=== PATIENT | male | born 1950 | race African-American/Black ===

== ENCOUNTER 2019-05-28 20:39 | Inpatient (IN) | payer MEDICAID, MEDICARE ==
[~2019-05-28] VITALS: Ht 162.6 cm; Wt 58.1 kg
[2019-05-28 20:45] VITALS: BP_SYST 128
--- NOTE | 2019-05-28 23:20 | NUR ---
Patient to ER bed 4 to gown for evaluation. Side rails up.
--- NOTE | 2019-05-28 23:22 | NUR ---
Dr. Virk bedside for pt eval
[2019-05-28] MEDS ORDERED: NACL 0.9% 1,000 ML IV ONE (23:30)
--- NOTE | 2019-05-28 23:30 | NUR ---
Pt LANDON from [facility] to ED seeking medical clearance VSS no s/s of acute distress Resting on gurney rails up
[2019-05-29] MEDS ORDERED: ACET-2165 PO (00:05)
[2019-05-29] MEDS ORDERED: NOR10 PO (00:07)
[2019-05-29] MEDS ORDERED: ARGI1POW13 PO (00:08)
[2019-05-29] MEDS ORDERED: ATEN100T PO (00:09)
[2019-05-29] MEDS ORDERED: LIP80 PO (00:11)
--- NOTE | 2019-05-29 00:12 | NUR ---
Pt taken to Radiology in stable condition
[2019-05-29] MEDS ORDERED: BUDE0.5A IH (00:13)
[2019-05-29 00:19] LABS: BASOPHILS % (AUTO) 0.6 % (0.0-2.0); EOSINOPHILS # (AUTO) 0.2 K/uL (0.0-0.4); EOSINOPHILS % (AUTO) 2.9 % (0.0-4.0); HEMATOCRIT 32.5 % (36-54); HEMOGLOBIN 10.9 g/dL (14.0-18.0); LYMPHOCYTES # (AUTO) 2.2 K/uL (1.0-5.5); LYMPHOCYTES % (AUTO) 39.4 % (20.5-51.5); MEAN CORPUSCULAR HEMOGLOBIN 32 pg (27-31); MEAN CORPUSCULAR HGB CONC 34 % (32-36); MEAN CORPUSCULAR VOLUME 96 fL (79.0-98.0); MONOCYTES # (AUTO) 0.4 K/uL (0.0-1.0); MONOCYTES % (AUTO) 6.9 % (1.7-9.3); NEUTROPHILS # (AUTO) 2.8 K/uL (1.8-7.7); NEUTROPHILS % (AUTO) 50.2 % (40.0-70.0); PLATELET COUNT (AUTO) 229 K/uL (130-430); RED CELL DISTRIBUTION WIDTH 13.7 % (9.0-15.0); WHITE BLOOD COUNT (AUTO) 5.5 K/uL (4.8-10.8)
[2019-05-29 00:23] LABS: CALCIUM 9.5 mg/dL (8.4-11.0); CREATININE 1.86 mg/dL (0.55-1.30); POTASSIUM 3.6 mmol/L (3.5-5.1)
[2019-05-29] MEDS ORDERED: CLON0.3T PO (00:30)
[2019-05-29 00:31] LABS: ALBUMIN 3.3 g/dL (3.4-4.8); TOTAL BILIRUBIN 0.2 mg/dL (0.0-1.0)
[2019-05-29] MEDS ORDERED: DONE5TAB33 PO (00:31)
[2019-05-29] MEDS ORDERED: MULT-1100 PO (00:32)
[2019-05-29] MEDS ORDERED: PRO40 PO (00:33)
[2019-05-29] MEDS ORDERED: QUET300T2 PO (00:34)
[2019-05-29] MEDS ORDERED: DABI150C PO (00:34)
[2019-05-29] MEDS ORDERED: TRAM50TA2 PO (00:35)
[2019-05-29] MEDS ORDERED: ASCO500T20 PO (00:35)
--- NOTE | 2019-05-29 00:36 | NUR ---
Medication reconciliation completed with information provided by [facility] and rehab. Any prior medication reconciliation on file was reviewed and corrected.
--- NOTE | 2019-05-29 02:55 | NUR ---
Pt has not voided. IVF completed. IV site is WNL. Encourage ptient to void in the urimal provided.
--- NOTE | 2019-05-29 03:00 | NUR ---
Transfer to Telemetry via ACLS protocol. Licensed nurse present. IV present no signs or symptoms of infiltration.
--- NOTE | 2019-05-29 03:00 | NUR ---
Patient will be admitted to care of Dr. Ordonez. Admitted to Tele unit. Will go to Tele Floor. Belongings list completed. Complete and up to date summary report printed. SBAR report to be given at bedside with opportunity for questions.
--- NOTE | 2019-05-29 06:33 | NUR ---
PT ADMITTED TO ROOM 133A. RECEIVED IN NO DISTRESSS. AWAKE AND UNRESPONSIVE TO COMMAND. PT ASSISTED FROM RNEY TO BED BY TWO RNS. SAFETY MINTAINED. VS NOTED 158/71, hr 64. RR 20, T 97.4AND O2SAT 99%. PT WEIGHED ON BED ON ADMISSION. WEIGHT 128.7.
--- NOTE | 2019-05-29 07:23 | NUR ---
Cardiac consult called: for Dr. Marrero, regarding syncope/seizure, ordered by Dr. Ordonez, spoke with Codi at exchange.
--- NOTE | 2019-05-29 07:26 | NUR ---
Neuro consult called: for Dr. Boland, regarding syncope/possible seizure, ordered by Dr. Ordonez, spoke with Karla.
[2019-05-29 08:00] VITALS: BP_SYST 158
[2019-05-29] MEDS ORDERED: NS 500 ML IV SCH (08:00)
--- NOTE | 2019-05-29 08:00 | NUR ---
Initial Notes: Patient is awake. Does not respond to RN's questions at this time. Vital signs stable. Able to feed self. No sign of distress. Patient on room air. Safety precautions initiated. Call light within reach. Bed alarms turned on. Encouraged to ask for assistance.
--- NOTE | 2019-05-29 08:10 | NUR ---
MD rounds. Seen by Dr. Marrero at bedside.
[2019-05-29 08:41] VITALS: BP_SYST 158
[2019-05-29] MEDS ORDERED: ATENOLOL 25 MG TABLET(TENORMIN) PO SCH (09:00)
--- NOTE | 2019-05-29 09:11 | NUR ---
2D-echo done. EF- 71%.
--- NOTE | 2019-05-29 09:30 | NUR ---
Urine: Incontinent of urine. Changed patient. Attempted to insert hernandez catheter as ordered, but was unable to due to resistance. Bladder scan done with 154 ml residual urine. Unable to get urine sample at this time. Will monitor.
[2019-05-29] MEDS: DABIGATRAN ETEXILATE MESYLATE 75 MG CAPSULE PO SCH ×2 (09:54→23:17)
[2019-05-29] MEDS: ASPIRIN 81 MG TAB.CHEW PO SCH (09:55)
[2019-05-29] MEDS: ATORVASTATIN 20 MG TABLET PO SCH ×2 (09:55→21:00)
--- NOTE | 2019-05-29 11:34 | NUR ---
Notes- Resting at this time. No acute distress noted. Sister at bedside. Repositioned for comfort.
--- NOTE | 2019-05-29 12:18 | NUR ---
Incontinent of urine, good amount. Cleaned and repositioned. Condom catheter placed, will attempt to collect urine.
[2019-05-29 12:40] VITALS: BP_SYST 130
--- NOTE | 2019-05-29 13:16 | NUR ---
MD rounds; seen by Dr. Ordonez. Informed of condom catheter placement instead of hernandez catheter as ordered during admission. Will send urine sample once available. MD agreed.
[2019-05-29 13:54] LABS: BILIRUBIN,URINE NEGATIVE (NEGATIVE); BLOOD, URINE 3+ (NEGATIVE); CLARITY/URINE SL CLOUDY (CLEAR); COLOR,URINE YELLOW (YELLOW); GLUCOSE,URINE NEGATIVE (NEGATIVE); KETONES,URINE NEGATIVE (NEGATIVE); LEUKOCYTE ESTERASE ,URINE 2+ (NEGATIVE); NITRITE, URINE NEGATIVE (NEGATIVE); PROTEIN URINE 2+ (NEGATIVE); UROBILINOGEN,URINE 0.2 (0.2-1.0)
[2019-05-29 14:08] LABS: BACTERIA,URINE FEW /HPF (None Seen); RBC,URINE 20-50 /HPF (0-3); URINE AMORPHOUS PHOSPHATES 1+ /HPF (None Seen); WBC,URINE 50-80 /HPF (0-3)
--- NOTE | 2019-05-29 14:59 | NUR ---
Surgery consult called: for Dr. Jason Aguilar, regarding inguinal hernia, ordered by Dr. Ordonez Spoke with Dr. Aguilar on the phone. He is aware.
--- NOTE | 2019-05-29 15:33 | NUR ---
ROUNDS Patient is asleep. Bed in lowest position. Call light within reach.
[2019-05-29 16:30] VITALS: BP_SYST 157
--- NOTE | 2019-05-29 17:28 | NUR ---
Notes- Turned and repositioned, no acute distress noted. will continue monitor.
--- NOTE | 2019-05-29 17:42 | NUR ---
Med Rec- Spoke to Dr. Ordonez and review patient home medication. Md ordered to continue home medications. orders carried out.
[2019-05-29] MEDS ORDERED: traMADol HCL HCL 50 MG TABLET (ULTRAM) PO PRN (17:45)
[2019-05-29] MEDS ORDERED: CLONIDINE HCL 0.3 MG PO PRN (17:45)
[2019-05-29] MEDS ORDERED: ACETAMINOPHEN 325 MG TABLET PO PRN (17:45)
[2019-05-29 17:51] VITALS: BP_SYST 157
--- NOTE | 2019-05-29 18:46 | NUR ---
CLOSING NOTES Patient remains in bed. No complaint of chest pain or SOB. Tolerated all feedings. IVF infusing well. Condom cath still in place.
[2019-05-29] MEDS: BUDESONIDE 0.5 MG/2 ML AMPUL.NEB IH SCH (19:45)
[2019-05-29] MEDS: DONEPEZIL HCL 5 MG TABLET (ARICEPT) PO SCH (23:18)
[2019-05-29] MEDS: QUEtiapine FUMARATE 100 MG TABLET PO SCH (23:20)
[2019-05-30 00:21] VITALS: BP_SYST 184
[2019-05-30] MEDS ORDERED: LEVOFLOXACIN 500 MG/D5W 100 ML IV ONE (00:23)
--- NOTE | 2019-05-30 00:44 | NUR ---
Dr Aguilar visited pt on consultation. New orderreceived for Levaquin 500 mg ivpb. Same administeded as odered without and adverse effect.
[2019-05-30] MEDS: LEVOFLOXACIN 500 MG/D5W 100 ML IV SCH (01:00)
[2019-05-30 06:53] LABS: BASOPHILS # (AUTO) 0.1 K/uL (0.0-0.2); BASOPHILS % (AUTO) 1.1 % (0.0-2.0); EOSINOPHILS # (AUTO) 0.2 K/uL (0.0-0.4); EOSINOPHILS % (AUTO) 4.9 % (0.0-4.0); HEMATOCRIT 33.5 % (36-54); HEMOGLOBIN 11.1 g/dL (14.0-18.0); LYMPHOCYTES # (AUTO) 1.9 K/uL (1.0-5.5); LYMPHOCYTES % (AUTO) 41.1 % (20.5-51.5); MEAN CORPUSCULAR HEMOGLOBIN 32 pg (27-31); MEAN CORPUSCULAR HGB CONC 33 % (32-36); MEAN CORPUSCULAR VOLUME 96 fL (79.0-98.0); MONOCYTES # (AUTO) 0.4 K/uL (0.0-1.0); MONOCYTES % (AUTO) 7.8 % (1.7-9.3); NEUTROPHILS # (AUTO) 2.1 K/uL (1.8-7.7); NEUTROPHILS % (AUTO) 45.1 % (40.0-70.0); PLATELET COUNT (AUTO) 223 K/uL (130-430); WHITE BLOOD COUNT (AUTO) 4.7 K/uL (4.8-10.8)
[2019-05-30] MEDS: BUDESONIDE 0.5 MG/2 ML AMPUL.NEB IH SCH ×2 (07:25→20:05)
[2019-05-30 07:37] LABS: ALBUMIN 2.9 g/dL (3.4-4.8); CALCIUM 9.1 mg/dL (8.4-11.0); CREATININE 1.67 mg/dL (0.55-1.30); THYROID STIMULATING HORMONE 1.98 uIu/mL (0.36-3.74); TOTAL BILIRUBIN 0.5 mg/dL (0.0-1.0)
--- NOTE | 2019-05-30 07:54 | NUR ---
scd is not indicated as pt is on Pradaxa.
[2019-05-30 08:00] VITALS: BP_SYST 168
[2019-05-30] MEDS: NS 1,000 ML IV SCH ×2 (08:00→13:03)
--- NOTE | 2019-05-30 08:00 | NUR ---
Initial notes- In bed, eats breakfast and able to feed self. no distress noted. Incontinent of urine, clean and repositioned. IVF infusing well. bed alarm on, call light in reach. will monitor.
[2019-05-30] MEDS: amLODIPine BESYLATE 10 MG TABLET PO SCH (08:29)
[2019-05-30] MEDS: PANTOPRAZOLE SODIUM 40 MG TAB PO SCH (08:29)
[2019-05-30] MEDS: ATORVASTATIN 20 MG TABLET PO SCH ×2 (08:29→21:30)
[2019-05-30] MEDS: ASCORBIC ACID 500 MG TABLET PO SCH (08:29)
[2019-05-30] MEDS: MULTIVITAMINS TAB 1 TABLET PO SCH (08:29)
[2019-05-30] MEDS: ASPIRIN 81 MG TAB.CHEW PO SCH (08:30)
[2019-05-30] MEDS: ARGININE PO SCH (08:47)
[2019-05-30] MEDS: ASCORBATE SOD PO SCH (08:47)
[2019-05-30] MEDS: VITE AC PO SCH (08:47)
[2019-05-30] MEDS: ATENOLOL 50 MG TABLET (TENORMIN) PO SCH (09:00)
[2019-05-30] MEDS: DABIGATRAN ETEXILATE MESYLATE 75 MG CAPSULE PO SCH ×2 (09:00→21:31)
--- NOTE | 2019-05-30 09:56 | NUR ---
Nutrition Update Santy Scale 11 noted. Pt admitted for syncope, seizure. Diet: 2 gm Na BMI: 22 kg/m2 RD to follow per nutrition care standards.
--- NOTE | 2019-05-30 11:00 | NUR ---
Has incontinent of urine. cleaned and repositioned.
[2019-05-30 12:16] VITALS: BP_SYST 102
--- NOTE | 2019-05-30 14:00 | NUR ---
heat treatment technician at bedside doing abdominal ultrasound.
--- NOTE | 2019-05-30 15:12 | NUR ---
Resting at this time, No acute distress noted.
--- NOTE | 2019-05-30 15:40 | NUR ---
Dietitian Recommendations * Recommend 2 gm Na diet w/ Ensure Enlive BID (ONS provides 700 kcal/day, 40 gm protein/day) ALDAIR GODINEZ Please refer to Nutrition Assessment for details. Addendum: 05/30/19 at [address] Amended: Links added.
[2019-05-30] MEDS ORDERED: cloNIDine HCL 0.1 MG TABLET PO PRN (16:16)
--- NOTE | 2019-05-30 16:16 | NUR ---
has incontinent of urine, pt voided good amount of urine. cleaned and repositioned. Blood pressure is 170/95. will give PRN medications as ordered.
[2019-05-30 16:30] VITALS: BP_SYST 170
[2019-05-30] MEDS ORDERED: cloNIDine HCL 0.1 MG TABLET ONE (16:38)
[2019-05-30 18:22] VITALS: BP_SYST 112
--- NOTE | 2019-05-30 18:31 | NUR ---
Closing notes- in bed, eating his dinner. no distress noted. blood pressure better. Denies any pain. Will endorse
[2019-05-30 21:05] VITALS: BP_SYST 98
--- NOTE | 2019-05-30 21:05 | NUR ---
TRANSFER OF CARE Received report from CHELY Fischer. Patient is resting in bed, awake, alert, oriented x 1, breathing evenly and nonlabored on room air. Vital signs stable. Patient has an IV on the left forearm 22g, patent and benign, no s/s of infection or infiltration noted at this time, IVF running, patient is tolerating it well. Patient has padded side rails, bed is locked, armed, and at lowest position. Educated patient on fall/safety/aspiration/seizure precautions, patient unable to state understanding due to cognitive limitations. Fall/safety/aspiration/seizure precautions, will continue to monitor.
[2019-05-30] MEDS: QUEtiapine FUMARATE 100 MG TABLET PO SCH (21:30)
[2019-05-30] MEDS: DONEPEZIL HCL 5 MG TABLET (ARICEPT) PO SCH (21:30)
--- NOTE | 2019-05-30 21:35 | NUR ---
MEDICATIONS/ROUNDS Patient is resting in bed, awake, alert, breathing evenly and nonlabored on room air. Educated patient on due medications, patient unable to state understanding due to cognitive limitations. Administered medications, patient was able to tolerate them well. No s/s of distress at this time, no other needs at this time. Fall/safety/aspiration/seizure precautions, will continue to monitor.
--- NOTE | 2019-05-30 23:30 | NUR ---
ROUNDS Patient is resting in bed, eyes closed, breathing evenly and nonlabored on room air. No s/s of distress at this time, no other needs at this time. Fall/safety/aspiration/seizure precautions, will continue to monitor.
[2019-05-31] MEDS: LEVOFLOXACIN 500 MG/D5W 100 ML IV SCH (00:02)
[2019-05-31] MEDS: NS 1,000 ML IV SCH ×2 (00:04→16:21)
[2019-05-31 00:06] VITALS: BP_SYST 99
--- NOTE | 2019-05-31 00:15 | NUR ---
MEDICATIONS/ROUNDS Patient is resting in bed, eyes closed, breathing evenly and nonlabored on room air. Educated patient on due medications, patient unable to state understanding due to cognitive limitations. Administered medications, patient is tolerating them well. Hygiene care performed. No s/s of distress at this time, no other needs at this time. Fall/safety/aspiration/seizure precautions, will continue to monitor.
--- NOTE | 2019-05-31 02:15 | NUR ---
ROUNDS Patient is resting in bed, eyes closed, breathing evenly and nonlabored on room air. No s/s of distress at this time, no other needs at this time. Fall/safety/aspiration/seizure precautions, will continue to monitor the patient. Addendum: 05/31/19 at 0624 by Maurizio Root RN Hygiene care performed.
--- NOTE | 2019-05-31 06:25 | NUR ---
CLOSING NOTES Patient is resting in bed, eyes closed, breathing evenly and nonlabored on room air. Hygiene care performed. Needs met throughout the shift. No s/s of distress at this time, no other needs at this time. Fall/safety/aspiration/seizure precautions, will endorse care to morning shift RN.
[2019-05-31] MEDS: BUDESONIDE 0.5 MG/2 ML AMPUL.NEB IH SCH ×2 (07:16→19:15)
[2019-05-31 08:00] VITALS: BP_SYST 117
[2019-05-31] MEDS: ASPIRIN 81 MG TAB.CHEW PO SCH (08:38)
[2019-05-31] MEDS: MULTIVITAMINS TAB 1 TABLET PO SCH (08:38)
[2019-05-31] MEDS: ASCORBIC ACID 500 MG TABLET PO SCH (08:38)
[2019-05-31] MEDS: PANTOPRAZOLE SODIUM 40 MG TAB PO SCH (08:39)
[2019-05-31] MEDS: ATORVASTATIN 20 MG TABLET PO SCH ×2 (08:39→21:22)
[2019-05-31] MEDS: amLODIPine BESYLATE 10 MG TABLET PO SCH (08:40)
[2019-05-31] MEDS: ATENOLOL 50 MG TABLET (TENORMIN) PO SCH (08:41)
[2019-05-31] MEDS: ASCORBATE SOD PO SCH (09:00)
[2019-05-31] MEDS: ARGININE PO SCH (09:00)
[2019-05-31] MEDS: VITE AC PO SCH (09:00)
--- NOTE | 2019-05-31 09:00 | NUR ---
Patient is awake and alert, eating breakfast. vs, HR 53/min, and held beta alex blood pressure med this morning. Willard Sewell RN
[2019-05-31] MEDS: DABIGATRAN ETEXILATE MESYLATE 75 MG CAPSULE PO SCH ×2 (09:18→21:00)
[2019-05-31 12:00] VITALS: BP_SYST 126
--- NOTE | 2019-05-31 13:00 | NUR ---
Patient daughter Sunny comes in and visits patient requesting update, and when patient will be going back to his facility. I gave her Dr Ordonez's phone number, and updated her on patient present condition. Willard Sewell RN
[2019-05-31 16:00] VITALS: BP_SYST 138
--- NOTE | 2019-05-31 17:30 | NUR ---
Dr Ordonez visits patient I updated on present condition, and that patient still needs his EEG done prior to discharge. Willard Sewell RN
--- NOTE | 2019-05-31 19:42 | NUR ---
Initial note: Received report from facundo RN. Patient is awake in bed, no acute distress, tolerating room air. IV site patent and intact, no infiltration, IV fluids infusing as ordered. Call light with patient. Safety, fall precautions in place. Will continue with plan of care.
[2019-05-31 20:00] VITALS: BP_SYST 122
--- NOTE | 2019-05-31 21:19 | NUR ---
Dr. Aguilar called asking if family was available to consent for hernia surgery. Called sister Rohit Treadwell @ . Per sister, she's able to give consent. Informed Dr. Aguilar. Order given to keep patient NPO for Laparoscopic Inguinal Hernia Repair with mesh and he will schedule surgery anytime tomorrow.
[2019-05-31] MEDS: DONEPEZIL HCL 5 MG TABLET (ARICEPT) PO SCH (21:22)
[2019-05-31] MEDS: QUEtiapine FUMARATE 100 MG TABLET PO SCH (21:23)
--- NOTE | 2019-05-31 21:29 | NUR ---
Med pass: Due medications administered, patient tolerated well taking medications whole. Due Pradaxa held for surgery scheduled for tomorrow.
--- NOTE | 2019-05-31 22:30 | NUR ---
Spoke with family: Called patient's sister Rohit Treadwell [phone] per face sheet. Notified her to expect a phone call from surgeon Dr. Aguilar tomorrow to explain the procedure before consent can be obtained. Informed her that any questions or concerns pertaining to the procedure itself must be directed to the surgeon. Patient's sister verbalized understanding.
[2019-06-01] VITALS: BP_SYST 108
--- NOTE | 2019-06-01 00:35 | NUR ---
Endorsement of care: Patient is asleep, no acute distress, tolerating room air, VSS. IV site patent and intact, no infiltration, receiving IV fluids as ordered. NPO since midnight as ordered for procedure. Safety, fall precautions observed. Care endorsed to CHELY San.
--- NOTE | 2019-06-01 00:45 | NUR ---
ROUNDS RECEIVED PATIENT ASLEEP, RESPIRATIONS EVEN AND UNLABORED, NO SOB NOR PAIN AND DISCOMFORT NOTED. SAFETY AND FALL MEASURES IN PLACED. WILL CONTINUE TO MONITOR.
[2019-06-01] MEDS: LEVOFLOXACIN 500 MG/D5W 100 ML IV SCH (00:47)
[2019-06-01] MEDS: NS 1,000 ML IV SCH ×2 (00:49→12:23)
--- NOTE | 2019-06-01 02:20 | NUR ---
ROUNDS PATIENT ASLEEP, NO SOB NOR PAIN AND DISCOMFORT NOTED. WILL CONTINUE TO MONITOR.
--- NOTE | 2019-06-01 04:16 | NUR ---
PATIENT RESTING: Patient resting quietly. No acute distress noted. Vital signs within normal range.
[2019-06-01] MEDS: BUDESONIDE 0.5 MG/2 ML AMPUL.NEB IH SCH ×2 (07:20→20:04)
[2019-06-01 08:00] VITALS: BP_SYST 122
[2019-06-01 08:26] LABS: INR 1.7 (0.80-1.20); PROTHROMBIN TIME 17.2 SECS (9.5-12.5)
[2019-06-01] MEDS: ATENOLOL 50 MG TABLET (TENORMIN) PO SCH (09:00)
[2019-06-01] MEDS: DABIGATRAN ETEXILATE MESYLATE 75 MG CAPSULE PO SCH (09:00)
--- NOTE | 2019-06-01 09:00 | NUR ---
Patient is incont of urine, and given complete bed bath and linens changed. His vs are stabe. He is SB on telemetry, and the betablocker, ASA, and Prodaxia hold. No co pain. Patient left groin, and scrotum are swollen. Willard Sewell RN
[2019-06-01] MEDS: ATORVASTATIN 20 MG TABLET PO SCH ×2 (10:02→21:51)
[2019-06-01] MEDS: amLODIPine BESYLATE 10 MG TABLET PO SCH (10:05)
[2019-06-01] MEDS: ASCORBIC ACID 500 MG TABLET PO SCH (10:05)
[2019-06-01] MEDS: MULTIVITAMINS TAB 1 TABLET PO SCH (10:05)
[2019-06-01] MEDS: PANTOPRAZOLE SODIUM 40 MG TAB PO SCH (10:06)
[2019-06-01] MEDS: ASPIRIN 81 MG TAB.CHEW PO SCH (10:06)
[2019-06-01] MEDS: VITE AC PO SCH (10:09)
[2019-06-01] MEDS: ASCORBATE SOD PO SCH (10:09)
[2019-06-01] MEDS: ARGININE PO SCH (10:09)
[2019-06-01 12:00] VITALS: BP_SYST 132
--- NOTE | 2019-06-01 13:30 | NUR ---
Rohit, patient sister calls requesting update on patient present condition, and given. She was requesting to let patient know that she knows he is having surgery today, and to assure him she will be visiting tomorrow. Willard Sewell RN
[2019-06-01 16:00] VITALS: BP_SYST 162
--- NOTE | 2019-06-01 17:00 | NUR ---
OR nurse visits patient before surgery, and updated on vs, labs-PT, and medications held due to high INR today. Willard Sewell RN
--- NOTE | 2019-06-01 18:00 | NUR ---
Patient to surgery, seen by anesthesiologist and transported via bed. Willard Sewell RN
[2019-06-01] MEDS ORDERED: LR 1,000 ML IV SCH (18:50)
[2019-06-01] MEDS ORDERED: HYDROmorphone 1 MG INJ. 1 MG/ML AMPUL IVP PRN (19:00)
[2019-06-01] MEDS ORDERED: DEXAMETHASONE SOD PHOSPHATE 4 MG/ML VIAL ONE (19:24)
[2019-06-01] MEDS ORDERED: BUPIVACAINE /EPINEPHRINE/PF 0.25% 30 ML VIAL INJ ONE (19:24)
[2019-06-01] MEDS ORDERED: DESFLURANE 15 MIN GAS INH ONE (19:24)
[2019-06-01] MEDS ORDERED: PROPOFOL 200MG/ 20ML VIAL (DIPRIVAN) IV ONE (19:24)
[2019-06-01] MEDS ORDERED: NS 1000 ML IV.SOLN IV ONE (19:24)
[2019-06-01] MEDS ORDERED: ROCURONIUM BROMIDE 10 MG/ML (ZEMURON) ONE (19:24)
[2019-06-01] MEDS ORDERED: ONDANSETRON HCL 4 MG/2 ML VIAL ONE (19:24)
[2019-06-01] MEDS ORDERED: CEFAZOLIN 2 GM IVPB PREMIX 50 ML IV ONE (19:24)
[2019-06-01] MEDS ORDERED: LR 1,000 ML IV.SOLN IV ONE (19:24)
[2019-06-01] MEDS ORDERED: fentaNYL CITRATE/PF 100 MCG/2 ML AMP ONE (19:24)
[2019-06-01 19:50] VITALS: BP_SYST 146
--- NOTE | 2019-06-01 20:50 | NUR ---
Arrived from surgery: Received report from OR nurse Connor RN. Patient arrived to unit from surgery via hospital bed in no acute distress. Tolerating room air, SaO2 93%. Denies pain. Abdominal dressing clean, dry, intact. Instructed patient on incentive spirometer use, patient uncooperative, will reinforce education. Safety, fall precautions in place. Call light with patient. Will continue with plan of care. Addendum: 06/02/19 at 0039 by Xander Jung RN Correction: patient arrived at 1950.
[2019-06-01] MEDS: DONEPEZIL HCL 5 MG TABLET (ARICEPT) PO SCH (21:51)
[2019-06-01] MEDS: QUEtiapine FUMARATE 100 MG TABLET PO SCH (21:52)
--- NOTE | 2019-06-01 22:05 | NUR ---
Spoke with family: Spoke with patient's sister Rohit Treadwell and provided her with updates regarding patient's condition. Patient's sister stated she will be visiting patient tomorrow.
[2019-06-02] VITALS: BP_SYST 148
[2019-06-02] MEDS: LEVOFLOXACIN 500 MG/D5W 100 ML IV SCH (00:13)
[2019-06-02] MEDS: MORPHINE 4 MG/ML INJ. SYRINGE IVP PRN (00:14)
--- NOTE | 2019-06-02 00:16 | NUR ---
Pain: Facial grimacing noted. Asked patient if his abdomen was in pain, patient stated "yes". Morphine 4 MG administered intravenously per MD order, no infiltration noted. Safety, fall precautions in place. Will continue monitoring.
--- NOTE | 2019-06-02 03:29 | NUR ---
Rounds: Patient is resting comfortably in bed, no acute distress, tolerating room air. IV fluids infusing as ordered, no infiltration. Call light with patient. Will continue to monitor.
--- NOTE | 2019-06-02 06:03 | NUR ---
Closing note: Patient is sleeping. No acute distress. Denies pain. IV fluids infusing well. Dressing to lower abdomen clean, dry, intact. All needs met. Safety, fall precautions observed. Will endorse care to dayshift RN.
[2019-06-02] MEDS: BUDESONIDE 0.5 MG/2 ML AMPUL.NEB IH SCH (07:31)
[2019-06-02 08:00] VITALS: BP_SYST 118
[2019-06-02] MEDS: VITE AC PO SCH (09:00)
[2019-06-02] MEDS: ASCORBATE SOD PO SCH (09:00)
[2019-06-02] MEDS: ARGININE PO SCH (09:00)
[2019-06-02] MEDS: MULTIVITAMINS TAB 1 TABLET PO SCH (09:29)
[2019-06-02] MEDS: ASPIRIN 81 MG TAB.CHEW PO SCH (09:29)
[2019-06-02] MEDS: amLODIPine BESYLATE 10 MG TABLET PO SCH (09:31)
[2019-06-02] MEDS: PANTOPRAZOLE SODIUM 40 MG TAB PO SCH (09:32)
[2019-06-02] MEDS: ATENOLOL 50 MG TABLET (TENORMIN) PO SCH (09:33)
[2019-06-02] MEDS: ASCORBIC ACID 500 MG TABLET PO SCH (09:33)
--- NOTE | 2019-06-02 19:30 | NUR ---
Opening note Patient is resting in bed, w/ eyes open. No SOB or s/sx of distress. IV is SL to LFA. Bed is locked in lowest position, side rails up 3x and bed alarm on.
[2019-06-02 20:00] VITALS: BP_SYST 127
[2019-06-02] MEDS: ATORVASTATIN 20 MG TABLET PO SCH (21:44)
[2019-06-02] MEDS: QUEtiapine FUMARATE 100 MG TABLET PO SCH (21:44)
[2019-06-02] MEDS: DONEPEZIL HCL 5 MG TABLET (ARICEPT) PO SCH (21:44)
--- NOTE | 2019-06-02 21:55 | NUR ---
Medications Due medications given. Patient listened and agreed to take medication, he followed command to swallow, though did not verbalize understanding or teach back, he is confused.
[2019-06-03 00:15] VITALS: BP_SYST 112
[2019-06-03] MEDS: LEVOFLOXACIN 500 MG/D5W 100 ML IV SCH (01:10)
--- NOTE | 2019-06-03 01:35 | NUR ---
Antibiotic Due antibiotic given and infusing well, patient tolerating. Patient is incontinent and was provided with pericare / clean pad and repositioned. Safety precautions in place.
[2019-06-03] MEDS: MORPHINE 4 MG/ML INJ. SYRINGE IVP PRN (02:46)
--- NOTE | 2019-06-03 02:59 | NUR ---
Restless Patient is restless in bed, removing covers. He was repositioned and does not seem comfortable. He grimaced upon light touch to abdomen. Administered Morphine for pain, will continue to monitor.
[2019-06-03] MEDS: BUDESONIDE 0.5 MG/2 ML AMPUL.NEB IH SCH ×3 (03:08→20:05)
--- NOTE | 2019-06-03 04:15 | NUR ---
Calm Patient is presently calm and tolerated reposition.
--- NOTE | 2019-06-03 06:45 | NUR ---
closing note Patient was provided w/ pericare and repositioned. He is quiet and does not yell, though he likes to grab onto my hand and prevent patient care. Patient resting in comfortable position. Needs met throughout shift, safety precautions in place. Will endorse care to incoming day shift RN.
--- NOTE | 2019-06-03 07:26 | NUR ---
Handoff with night team registered nurse, Michaela. Patient awake to touch. Startles and will swing at times. Calm otherwise. Sergei Cope RN
[2019-06-03 07:41] VITALS: BP_SYST 80
[2019-06-03] MEDS: MULTIVITAMINS TAB 1 TABLET PO SCH (08:15)
[2019-06-03] MEDS: ASPIRIN 81 MG TAB.CHEW PO SCH (08:15)
[2019-06-03 08:23] VITALS: BP_SYST 135
[2019-06-03] MEDS: PANTOPRAZOLE SODIUM 40 MG TAB PO SCH (08:27)
[2019-06-03] MEDS: ATENOLOL 50 MG TABLET (TENORMIN) PO SCH (08:28)
[2019-06-03] MEDS: amLODIPine BESYLATE 10 MG TABLET PO SCH (08:41)
[2019-06-03] MEDS: ASCORBIC ACID 500 MG TABLET PO SCH (08:41)
[2019-06-03] MEDS: VITE AC PO SCH (08:42)
[2019-06-03] MEDS: ASCORBATE SOD PO SCH (08:42)
[2019-06-03] MEDS: ARGININE PO SCH (08:42)
--- NOTE | 2019-06-03 10:27 | NUR ---
Twelve hour chart check and medication pass. Sergei Cope RN
--- NOTE | 2019-06-03 11:25 | NUR ---
nurse assistant Lacey gave a complete bed bath to patient. Sergei Cope RN
[2019-06-03 12:30] VITALS: BP_SYST 128
--- NOTE | 2019-06-03 14:24 | NUR ---
Patient tolerates meal well. Cough and congestion audible wheezing present. Patient may benefit from more frequent RT rounds. Sergei Cope RN
[2019-06-03 16:08] VITALS: BP_SYST 139
[2019-06-03] MEDS ORDERED: NACL 0.9% 1,000 ML IV ONE (16:30)
--- NOTE | 2019-06-03 16:40 | NUR ---
Nutrition F/U RD reviewed pt's current EMR record including diet Hx, physician notes, nursing notes, pertinent labs/meds/procedures, care trends, and care activity. Admission Dx: Syncope, seizure PMH: CVA, HTN, renal Dz, HLD, TIA, calculus of gallbladder, syncope, osteomyelitis per physician notes Pertinent Medical Info: Pt is POD 2 s/p herniorrhaphy d/t large inguinal hernia per EMR Current Diet Order/Nutrition Support: Soft (low fiber/bland) x0 days Subjective Info: Per RN, pt ate 50% of breakfast and lunch today. Pt was advanced from full liquid to soft diet for dinner. Pt would benefit from continuing Ensure Enlive TID to better meet nutritional needs. Current % PO 38% average x6 meals -- trending down since last RD visit Estimated Energy Expenditure (kcals/day) 1740- 2030 kcal/day (30-35 kcal/kg CBW for surgical healing) Estimated Protein Required (g/day) 58-87 gm/day (1-1.5 gm/kg CBW for renal failure, surgical healing) Estimated Fluid Required (l/day) Per physician d/t renal failure Problem/Etiology/Signs/Symptoms Suboptimal nutritional intakes related to possible lack of appetite as evidenced by fair PO intake records. *ongoing Expected Outcomes/Goals - Monitor appetite and PO intakes w/ goal of pt meeting at least 75% of estimated nutritional needs, labs trending WNL, normal GI function, and skin integrity/wt maintenance Dietitian Recommendations * Recommend soft (low fiber/bland), 2 gm Na diet w/ Ensure Enlive BID (ONS provides 700 kcal/day, 40 gm protein/day) Follow Up High Risk: F/U in 2-3 days Addendum: 06/03/19 at [address] CORRECTION: Dietitian Recommendations * Recommend soft (low fiber/bland), 2 gm Na diet w/ Ensure Enlive TID (ONS provides 1050 kcal/day, 60 gm protein/day)
--- NOTE | 2019-06-03 16:46 | NUR ---
Dietitian Recommendations * Recommend soft (low fiber/bland), 2 gm Na diet w/ Ensure Enlive BID (ONS provides 700 kcal/day, 40 gm protein/day) GRETCHEN, RD Please refer to Nutrition F/U for details. Addendum: 06/03/19 at [address] CORRECTION: Dietitian Recommendations * Recommend soft (low fiber/bland), 2 gm Na diet w/ Ensure Enlive TID (ONS provides 1050 kcal/day, 60 gm protein/day)
--- NOTE | 2019-06-03 16:46 | NUR ---
CONSULTATION PAGED/CALLED Reason for Consultation: FEVER Person Who was Notified: KENDRA Consulting Physician: Sample Tester Grinder Specialty: Ordering Physician:
[2019-06-03 16:49] LABS: BASOPHILS % (AUTO) 0.3 % (0.0-2.0); EOSINOPHILS % (AUTO) 0.4 % (0.0-4.0); HEMATOCRIT 32.1 % (36-54); HEMOGLOBIN 10.8 g/dL (14.0-18.0); LYMPHOCYTES # (AUTO) 0.6 K/uL (1.0-5.5); LYMPHOCYTES % (AUTO) 8.2 % (20.5-51.5); MEAN CORPUSCULAR HEMOGLOBIN 32 pg (27-31); MEAN CORPUSCULAR HGB CONC 34 % (32-36); MEAN CORPUSCULAR VOLUME 95 fL (79.0-98.0); MONOCYTES # (AUTO) 0.4 K/uL (0.0-1.0); MONOCYTES % (AUTO) 4.9 % (1.7-9.3); NEUTROPHILS # (AUTO) 6.6 K/uL (1.8-7.7); NEUTROPHILS % (AUTO) 86.2 % (40.0-70.0); PLATELET COUNT (AUTO) 224 K/uL (130-430); RED BLOOD CELL COUNT(AUTO) 3.39 MIL/uL (4.2-6.2); RED CELL DISTRIBUTION WIDTH 13.8 % (9.0-15.0); WHITE BLOOD COUNT (AUTO) 7.7 K/uL (4.8-10.8)
[2019-06-03 17:03] LABS: CREATININE 2.42 mg/dL (0.55-1.30); POTASSIUM 4.3 mmol/L (3.5-5.1)
--- NOTE | 2019-06-03 17:22 | NUR ---
Consent from patient sister, Sunny, with Asha Hurtado RN. Right upper arm midline placement by Andreas at this time. Sergei Cope RN
[2019-06-03] MEDS: ACETAMINOPHEN 325 MG TABLET PO PRN ×2 (18:37→23:19)
--- NOTE | 2019-06-03 19:28 | NUR ---
Handoff with CHELY Encinas. Sergei Cope
[2019-06-03 20:00] VITALS: BP_SYST 148
--- NOTE | 2019-06-03 20:00 | NUR ---
INITIAL NOTE AT INITIAL ASSESSMENT, PATIENT IS RESTING IN BED, STABLE, NO SIGNS OF RESPIRATORY DISTRESS. PATIENT VERBALIZES SHOWS NO PAIN PER FLACC SCALE. PLAN OF CARE FOR THE EVENING IS COMMUNICATED WITH THE PATIENT. HE IS UNABLE TO DEMONSTRATE CORRECT USAGE CALL LIGHT AT THIS TIME DUE TO COGNITIVE IMPAIRMENT. HE IS IN A ROOM WITH A SITTER FOR CLOSE OBSERVATION. BED IS LOCKED, ALARMED, AND AT THE LOWEST LEVEL. FALL, SAFETY, ASPIRATION AND RESPIRATORY PRECAUTIONS WILL BE TAKEN THROUGHOUT THE SHIFT. RISK FOR SEPTIC SHOCK WILL BE MONITORED CLOSELY THROUGHOUT THE SHIFT. PATIENT'S TEMPERATURE IS ELEVATED AT THIS TIME, COOLING MEASURES INITIATED. WILL MONITOR CLOSELY.
[2019-06-03] MEDS: QUEtiapine FUMARATE 100 MG TABLET PO SCH (20:42)
[2019-06-03] MEDS: DONEPEZIL HCL 5 MG TABLET (ARICEPT) PO SCH (20:42)
[2019-06-03] MEDS: ATORVASTATIN 20 MG TABLET PO SCH (20:42)
[2019-06-03] MEDS ORDERED: PIPERACILLIN/TAZO 2.25G/DEX-IS 50 ML IV SCH (21:00)
[2019-06-03] MEDS ORDERED: PIPERACILLIN/TAZOBACTAM 2.25 GM VIAL IV ONE (21:13)
--- NOTE | 2019-06-03 22:00 | NUR ---
Anitha CASTANEDA COMMUNICATION / NOTE DR. SWEENEY CALLED BACK, HE IS MADE AWARE THAT PATIENT WAS PLACED ON SEPTIC PROTOCOL DURING DAYTIME SHIFT. NEW ANTIBIOTIC IS GIVEN AT THIS TIME PER Anitha CASTANEDA ORDERS. MD IS AWARE OF PATIENT'S ELEVATED BUN AND CR. REGULAR SCHEDULED NIGHT TIME MEDICATIONS ARE ALSO GIVEN TO PATIENT AT THIS TIME, PATIENT TOLERATED WELL. PATIENT IS REPOSITIONED INTO BED FOR COMFORT. CALL LIGHT PLACED WITHIN REACH. BED IS LOCKED, ALARMED, AND AT THE LOWEST LEVEL.
--- NOTE | 2019-06-04 | NUR ---
NOTE PATIENT TEMPERATURE IS NOW STABLE, VITALS STABLE. PATIENT IS RESTING IN BED, NO SIGNS OF RESPIRATORY DISTRESS. CALL LIGHT PLACED WITHIN REACH. BED IS LOCKED, ALARMED, AND AT THE LOWEST LEVEL.
[2019-06-04 00:02] VITALS: BP_SYST 109
--- NOTE | 2019-06-04 00:45 | NUR ---
Matt CASTANEDA. ROUNDS Anitha CASTANEDA IS AT BEDSIDE AT THIS TIME MAKING ROUNDS. HE VERBALIZES HE WILL PLACE HIS OWN ORDERS.
--- NOTE | 2019-06-04 02:00 | NUR ---
NOTE PATIENT TEMPERATURE REMAINS STABLE, VITALS STABLE. PATIENT IS SLEEPING, NO SIGNS OF RESPIRATORY DISTRESS. CALL LIGHT PLACED WITHIN REACH. BED IS LOCKED, ALARMED, AND AT THE LOWEST LEVEL.
[2019-06-04] MEDS: PIPERACILLIN/TAZO 2.25G/DEX-IS 50 ML IV SCH ×4 (03:10→21:19)
--- NOTE | 2019-06-04 06:00 | NUR ---
CLOSING NOTE PATIENT SLEPT WELL THROUGHOUT THE NIGHT. AT THIS TIME, HE IS RESTING IN BED, STABLE, NO SIGNS OF RESPIRATORY DISTRESS. CALL LIGHT PLACED WITHIN REACH. BED IS LOCKED, ALARMED, AND AT THE LOWEST LEVEL. FALL, SAFETY, RESPIRATORY, ASPIRATION, AND SEIZURE PRECAUTIONS HAVE BEEN IN PLACE THROUGHOUT THE NIGHT. WILL CONTINUE TO MONITOR CLOSELY UNTIL SHIFT REPORT IS GIVEN AT BEDSIDE TO AM NURSE.
[2019-06-04 07:46] LABS: BASOPHILS % (AUTO) 0.5 % (0.0-2.0); HEMATOCRIT 27.7 % (36-54); HEMOGLOBIN 9.3 g/dL (14.0-18.0); LYMPHOCYTES # (AUTO) 0.7 K/uL (1.0-5.5); LYMPHOCYTES % (AUTO) 10.1 % (20.5-51.5); MEAN CORPUSCULAR HEMOGLOBIN 32 pg (27-31); MEAN CORPUSCULAR HGB CONC 34 % (32-36); MEAN CORPUSCULAR VOLUME 95 fL (79.0-98.0); MONOCYTES # (AUTO) 0.5 K/uL (0.0-1.0); MONOCYTES % (AUTO) 6.6 % (1.7-9.3); NEUTROPHILS # (AUTO) 5.7 K/uL (1.8-7.7); NEUTROPHILS % (AUTO) 82.8 % (40.0-70.0); PLATELET COUNT (AUTO) 185 K/uL (130-430); RED BLOOD CELL COUNT(AUTO) 2.93 MIL/uL (4.2-6.2); RED CELL DISTRIBUTION WIDTH 13.7 % (9.0-15.0); WHITE BLOOD COUNT (AUTO) 6.8 K/uL (4.8-10.8)
--- NOTE | 2019-06-04 07:55 | NUR ---
opening note patient is resting in bed, nonverbal at this time, educated electronic development technician light system and plan of care, patient did not give me a verbal response, patient drowsy, no signs of distress at this time, no other needs addressed at this time, brake armed, bed in lowest position, bed alarm on, two side rails up, call light within reach, fall/safety precautions in place, midline dressing intact, attempted to feed patient applesauce with tylenol in it, patient was only able to take the tylenol and too drowsy to take anymore PO medications, swallow evaluation will be done, ice packs placed on patient to bring temperature down.
[2019-06-04 08:00] VITALS: BP_SYST 111
[2019-06-04 08:09] LABS: CALCIUM 8.2 mg/dL (8.4-11.0); CREATININE 2.62 mg/dL (0.55-1.30)
[2019-06-04] MEDS: ASPIRIN 81 MG TAB.CHEW PO SCH (08:23)
[2019-06-04] MEDS: MULTIVITAMINS TAB 1 TABLET PO SCH (08:24)
[2019-06-04] MEDS: ASCORBATE SOD PO SCH (08:24)
[2019-06-04] MEDS: ASCORBIC ACID 500 MG TABLET PO SCH (08:24)
[2019-06-04] MEDS: ATENOLOL 50 MG TABLET (TENORMIN) PO SCH (08:24)
[2019-06-04] MEDS: ARGININE PO SCH (08:24)
[2019-06-04] MEDS: PANTOPRAZOLE SODIUM 40 MG TAB PO SCH (08:24)
[2019-06-04] MEDS: VITE AC PO SCH (08:24)
[2019-06-04] MEDS: amLODIPine BESYLATE 10 MG TABLET PO SCH (08:24)
[2019-06-04] MEDS: BUDESONIDE 0.5 MG/2 ML AMPUL.NEB IH SCH ×2 (08:33→19:44)
--- NOTE | 2019-06-04 08:41 | NUR ---
SPEECH THERAPY WAS CALLED TO MANAN RE: SWALLOWING EVAL. LEFT A VOICE MESSAGE.
--- NOTE | 2019-06-04 10:30 | NUR ---
temperature rechecked 99.5, patient is more verbal and alert at this time, no signs of distress at this time, fall/safety precautions in place.
--- NOTE | 2019-06-04 12:10 | NUR ---
Dr Jeff frank informed him about patient running a fever since yesterday, saw patient, we changed his dressing. with assist from CORN SHREDDER patient was cleaned and changed, no signs of distress at this time, patient more verbal and alert, fall/safety and aspiration precautions in place.
[2019-06-04 12:20] VITALS: BP_SYST 118
[2019-06-04 12:49] VITALS: BP_SYST 111
[2019-06-04] MEDS ORDERED: MORPHINE 4 MG/ML INJ. SYRINGE IVP PRN (14:00)
[2019-06-04] MEDS ORDERED: ACETAMINOPHEN/CODEINE 300 MG-30 MG TABLET PO PRN (14:00)
[2019-06-04] MEDS ORDERED: ONDANSETRON HCL 4 MG/2 ML VIAL IVP PRN (14:00)
--- NOTE | 2019-06-04 15:00 | NUR ---
IV ANTIBIOTIC patient resting in bed, more verbal, educated on medication use and side effects, patient just nodded head, no signs of distress at this time, no other needs addressed at this time, fall/safety and aspiration precautions in place.
[2019-06-04 16:03] VITALS: BP_SYST 130
--- NOTE | 2019-06-04 16:34 | NUR ---
S.T. SWALLOW EVAL SWALLOW EVAL COMPLETED. PT PRESENTS W/ GENERALLY FUNCTIONAL OROPHARYNGEAL SWALLOW FOR PUREE AND THIN/THICK LIQUIDS. NO S/S OF ASPIRATION. REC: PUREE DIET. THIN LIQUIDS OK. NURSE SIOBHAN NOTIFIED.
--- NOTE | 2019-06-04 16:45 | NUR ---
rounds patient resting in bed, eyes closed breathing easy and nonlabored at this time, no signs of distress at this time, fall/safety precautions in place.
--- NOTE | 2019-06-04 18:40 | NUR ---
closing ntoe patient is resting in bed, patient verbalizes minimal words, no signs of distress at this time, no other needs addressed at this time, brake armed, bed in lowest position, bed alarm on, two side rails up, call light within reach, fall/safety precautions in place, midline and IV dressings secured, patient okay by ST to be on pureed diet, patient needs medications crushed and given with applesauce, will endorse care to fast food shift lead nurse to continue with care, will endorse condom catheter insertion so UA sample can be collected. Addendum: 06/04/19 at 1841 by Nasra Fisher RN CLOSING NOTE
--- NOTE | 2019-06-04 19:30 | NUR ---
Opening notes Received report. Patient is resting in bed. No signs of distress noted. Breathing even and unlabored. IV patent and intact, no signs of infiltration noted. Urine sample to be collected. Will place Condom catheter. No needs. Call light with the patient. Safety precautions in place.
[2019-06-04 20:00] VITALS: BP_SYST 134
[2019-06-04] MEDS: DONEPEZIL HCL 5 MG TABLET (ARICEPT) PO SCH (21:19)
[2019-06-04] MEDS: QUEtiapine FUMARATE 100 MG TABLET PO SCH (21:19)
[2019-06-04] MEDS: ATORVASTATIN 20 MG TABLET PO SCH (21:19)
--- NOTE | 2019-06-04 21:30 | NUR ---
Medications given. Educated the action and side effects of medications. Patient tolerated well. Call light with the patient. Safety precautions in place.
[2019-06-05] VITALS: BP_SYST 128
--- NOTE | 2019-06-05 | NUR ---
Condom catheter placed Patient tolerated well. Patient had just voided prior to placement. hygiene care provided. Awaiting urine output.
--- NOTE | 2019-06-05 02:30 | NUR ---
Sleeping Patient sleeping. No signs of distress noted. Breathing even and unlabored. No needs at this time. Call light with the patient. Safety precautions in place.
[2019-06-05] MEDS: PIPERACILLIN/TAZO 2.25G/DEX-IS 50 ML IV SCH ×4 (03:20→21:00)
--- NOTE | 2019-06-05 04:40 | NUR ---
Sleeping No signs of distress noted. Breathing even and unlabored. No needs at this time. Call light with the patient. Safety precautions in place.
[2019-06-05 06:10] LABS: BILIRUBIN,URINE NEGATIVE (NEGATIVE); BLOOD, URINE 3+ (NEGATIVE); CLARITY/URINE CLEAR (CLEAR); COLOR,URINE YELLOW (YELLOW); GLUCOSE,URINE NEGATIVE (NEGATIVE); KETONES,URINE NEGATIVE (NEGATIVE); LEUKOCYTE ESTERASE ,URINE NEGATIVE (NEGATIVE); NITRITE, URINE NEGATIVE (NEGATIVE); PROTEIN URINE 3+ (NEGATIVE); UROBILINOGEN,URINE 0.2 (0.2-1.0)
[2019-06-05 06:21] LABS: BACTERIA,URINE FEW /HPF (None Seen); WBC,URINE 0-3 /HPF (0-3)
--- NOTE | 2019-06-05 06:46 | NUR ---
Closing notes Patient is resting in bed. No signs of distress noted. Breathing even and unlabored. Patient afebrile throughout shift. IV patent and intact, no signs of infiltration noted. Condom catheter in place. Urine sample was sent for UA/UC. All needs met throughout the shift. Call light with the patient. Safety precautions in place. Will endorse care to day shift RN.
[2019-06-05 07:16] VITALS: BP_SYST 131
--- NOTE | 2019-06-05 07:54 | NUR ---
OPENING NOTES RECEIVED BEDSIDE SBAR FROM NIGHT RN, PATIENT IN BED ASLEEP, RESPIRATIONS EVEN NON LABORED, BED IN LOW AND LOCKED POSITION, CALL LIGHT WITH IN REACH.
[2019-06-05] MEDS: MULTIVITAMINS TAB 1 TABLET PO SCH (08:54)
[2019-06-05] MEDS: PANTOPRAZOLE SODIUM 40 MG TAB PO SCH (08:54)
[2019-06-05] MEDS: ATENOLOL 50 MG TABLET (TENORMIN) PO SCH (08:56)
[2019-06-05] MEDS: ASPIRIN 81 MG TAB.CHEW PO SCH (08:56)
[2019-06-05] MEDS: amLODIPine BESYLATE 10 MG TABLET PO SCH (08:56)
[2019-06-05] MEDS: ASCORBIC ACID 500 MG TABLET PO SCH (08:58)
[2019-06-05] MEDS: ARGININE PO SCH (09:00)
[2019-06-05] MEDS: VITE AC PO SCH (09:00)
[2019-06-05] MEDS: ASCORBATE SOD PO SCH (09:00)
--- NOTE | 2019-06-05 10:29 | NUR ---
MD ROUNDS DR. Matt SWEENEY BEDSIDE WITH PATIENT, EXAMINING PATIENT, BED IN LOW AND LOCKED POSITION, EMPERATRIZ LIGHT WITHIN REACH
[2019-06-05] MEDS: BUDESONIDE 0.5 MG/2 ML AMPUL.NEB IH SCH ×2 (10:35→20:14)
[2019-06-05] MEDS: IPRATROPIUM/ALBUTEROL SULFATE 3 ML AMPUL.NEB (DUONEB) INH PRN ×2 (10:35→20:14)
[2019-06-05 11:31] VITALS: BP_SYST 124
--- NOTE | 2019-06-05 12:25 | NUR ---
NURSE NOTES REPLACED CONDOM CATHETER, PATIENT TOLERATED WELL, BED IN LOW AND LOCKED POSITION, CALL LIGHT WITHIN REACH
--- NOTE | 2019-06-05 14:00 | NUR ---
TEACHING EDUCATED PATIENT REGARDING USE OF INCENTIVE SPIROMETER, ADVISED PATIENT TO USE 10 TIMES PER HOUR, PATIENT UNABLE TO COMPREHEND, DID NOT SUCCESSFULLY USE INCENTIVE SPIROMETER, WILL CONTINUE TO EDUCATE
[2019-06-05 15:30] VITALS: BP_SYST 117
[2019-06-05] MEDS: ACETAMINOPHEN 325 MG TABLET PO PRN (15:41)
--- NOTE | 2019-06-05 16:30 | NUR ---
NURSE NOTES PATIENT IN BED, EYES CLOSED, RESPIRATIONS EVEN, NON LABORED, BED IN LOW AND LOCKED POSITION, CALL LIGHT WITHIN REACH
--- NOTE | 2019-06-05 17:50 | NUR ---
WOUND CARE REMOVED BANDAGE, SCANT BRIGHT RED BLOOD, NO ODOR, CLEANED WITH NS, PATTED DRY, COVERED WITH NON STICK DRESSING, PAPER TAPE, PATIENT TOLERATED WELL, NO SIGNS OF DISTRESS, BED IN LOW AND LOCKED POSITION
--- NOTE | 2019-06-05 18:00 | NUR ---
MD ROUNDS DR FERNANDEZ EXAMINED PATIENT BEDSIDE, NEW ORDERS RECEIVED, VERIFIED WITH READ BACK, BED IN LOW AND LOCKED POSITION, CALL LIGHT WITHIN REACH
--- NOTE | 2019-06-05 19:05 | NUR ---
CLOSING NOTES BEDSIDE SBAR GIVEN TO NIGHT RN, RESPIRATIONS EVEN, NON LABORED, BED IN LOW AND LOCKED POSITION, CALL LIGHT WITHIN REACH, CARE ENDORSED TO NIGHT RN
[2019-06-05 19:57] VITALS: BP_SYST 138
[2019-06-05] MEDS: DONEPEZIL HCL 5 MG TABLET (ARICEPT) PO SCH ×2 (21:00→21:19)
[2019-06-05] MEDS: QUEtiapine FUMARATE 100 MG TABLET PO SCH ×2 (21:00→21:19)
[2019-06-05] MEDS: ATORVASTATIN 20 MG TABLET PO SCH ×2 (21:00→21:19)
--- NOTE | 2019-06-05 21:16 | NUR ---
medication crushed and given with apple sauce and refused, wasted and took anoyher dose,
--- NOTE | 2019-06-05 21:30 | NUR ---
medications crushed and gave to the patient with apple juice and water.
[2019-06-06] VITALS: BP_SYST 143
[2019-06-06] MEDS: PIPERACILLIN/TAZO 2.25G/DEX-IS 50 ML IV SCH ×4 (03:16→20:39)
[2019-06-06 04:00] VITALS: BP_SYST 140
[2019-06-06 06:36] LABS: CALCIUM 9.1 mg/dL (8.4-11.0); CREATININE 2.35 mg/dL (0.55-1.30); POTASSIUM 3.5 mmol/L (3.5-5.1)
--- NOTE | 2019-06-06 06:43 | NUR ---
condom catheter emptied, and recorded, patient aslepp intermittently.
[2019-06-06 06:54] LABS: BASOPHILS % (AUTO) 0.5 % (0.0-2.0); EOSINOPHILS # (AUTO) 0.2 K/uL (0.0-0.4); EOSINOPHILS % (AUTO) 2.8 % (0.0-4.0); HEMATOCRIT 27.5 % (36-54); HEMOGLOBIN 9.2 g/dL (14.0-18.0); LYMPHOCYTES # (AUTO) 1.7 K/uL (1.0-5.5); LYMPHOCYTES % (AUTO) 25.4 % (20.5-51.5); MEAN CORPUSCULAR HEMOGLOBIN 32 pg (27-31); MEAN CORPUSCULAR HGB CONC 33 % (32-36); MEAN CORPUSCULAR VOLUME 95 fL (79.0-98.0); MONOCYTES # (AUTO) 0.5 K/uL (0.0-1.0); NEUTROPHILS # (AUTO) 4.1 K/uL (1.8-7.7); NEUTROPHILS % (AUTO) 63.3 % (40.0-70.0); PLATELET COUNT (AUTO) 204 K/uL (130-430); RED BLOOD CELL COUNT(AUTO) 2.88 MIL/uL (4.2-6.2); WHITE BLOOD COUNT (AUTO) 6.5 K/uL (4.8-10.8)
[2019-06-06 07:32] VITALS: BP_SYST 124
[2019-06-06] MEDS: BUDESONIDE 0.5 MG/2 ML AMPUL.NEB IH SCH ×2 (07:43→20:49)
[2019-06-06] MEDS: MULTIVITAMINS TAB 1 TABLET PO SCH ×2 (08:23→09:00)
[2019-06-06] MEDS: ASCORBIC ACID 500 MG TABLET PO SCH ×2 (08:23→09:00)
[2019-06-06] MEDS: PANTOPRAZOLE SODIUM 40 MG TAB PO SCH ×2 (08:23→09:00)
[2019-06-06] MEDS: amLODIPine BESYLATE 10 MG TABLET PO SCH ×2 (08:23→09:00)
[2019-06-06] MEDS: ASPIRIN 81 MG TAB.CHEW PO SCH ×2 (08:23→09:00)
[2019-06-06] MEDS: ATENOLOL 50 MG TABLET (TENORMIN) PO SCH ×2 (08:24→09:00)
[2019-06-06] MEDS: ARGININE PO SCH (08:25)
[2019-06-06] MEDS: ASCORBATE SOD PO SCH (08:25)
[2019-06-06] MEDS: VITE AC PO SCH (08:25)
--- NOTE | 2019-06-06 10:30 | NUR ---
AM bath: Patient has had condom catheter, but is loose and he is wet. Give him a complete bed bath, and linens changing. Keep a condom cath off, will monitor out put and give incontinent care.
--- NOTE | 2019-06-06 10:59 | NUR ---
Initial not: Patient is awake, oriented x1, confused at time. He has wet coughing, and Sat O2=86 % on room air. Put him on 2 L/M via NC , then Sat O2 is up to 94%. Will continue monitor and inform MD. Addendum: 06/06/19 at 1154 by Reyes Cabrera RN Correct time at 07.30 AM
[2019-06-06 11:37] VITALS: BP_SYST 116
--- NOTE | 2019-06-06 13:00 | NUR ---
Refused lunch: Puree diet was served. Patient refused to eat lunch, but he drank 2 cans of Ensure.
[2019-06-06 15:47] VITALS: BP_SYST 133
--- NOTE | 2019-06-06 16:06 | NUR ---
RN note: Patient is sleeping and he removes Oxygen , Sat O2 =95%, with no sign of distress. Keep Oxygen off and will continue to monitor.
[2019-06-06] MEDS: IPRATROPIUM/ALBUTEROL SULFATE 3 ML AMPUL.NEB (DUONEB) INH PRN (17:26)
--- NOTE | 2019-06-06 18:36 | NUR ---
Closing note: Patient is stable, no SOB with room air, no sign of distress, having poor appetite, but replace with unsure 1-2 bottles per meal.
[2019-06-06 19:55] VITALS: BP_SYST 140
[2019-06-06] MEDS: ATORVASTATIN 20 MG TABLET PO SCH (20:51)
[2019-06-06] MEDS: QUEtiapine FUMARATE 100 MG TABLET PO SCH (20:52)
[2019-06-06] MEDS: DONEPEZIL HCL 5 MG TABLET (ARICEPT) PO SCH (20:52)
--- NOTE | 2019-06-06 21:30 | NUR ---
MEDICATION CRUSHED AND GIVEN WITH APPLE JUICE PATIENT DO NOT LIKE APPLE SAUCE,SISTER MIGUEL CALLED AND ASKED FOR THE PATIENT, PATIENT IS INFOMED ABOUT THE CALL
[2019-06-07] VITALS (7 sets, daily range): BP systolic 124–146
[2019-06-07] MEDS: PIPERACILLIN/TAZO 2.25G/DEX-IS 50 ML IV SCH ×3 (03:15→15:46)
--- NOTE | 2019-06-07 03:39 | NUR ---
ASLEEP.CLEANED AND KEPT DRY.
--- NOTE | 2019-06-07 05:25 | NUR ---
AWAKE CLEANED AND KEPT DRY. TURNED TO SIDES, K LEVEL 3.5, DR FERNANDEZ IS AWARE.
--- NOTE | 2019-06-07 06:56 | NUR ---
PATIENT NOTED TO HAVE NO BM SINCE 06/[address] SCAN OF THE ABDOMEN HAS DISTENDED BOWEL LOOS DUE TO FECAL MATERIALS. WILL INFORN DR FERNANDEZ TODAY. SAT 92 ON ROOM AIR. HAS ORDERS FOR OXYGEN [id number] PER MINUTE,
--- NOTE | 2019-06-07 07:20 | NUR ---
received patient alert awake x 1, confused. knows his name. lungs bilaterally with slight wheezing and non productive cough noted. abdomen soft and non distended. has oxygen of 2 lnc. vitals signs stable. temp 99. and documented. has bus driver/monitor on sr on 80-90. bed low position, alarmed and locked. has bilateral scds on. has rt upper midline 2 lumen in placed. has dressing on the left inguinal area. dry/intact. no vika drain noted. will continue to monitor patients status.
--- NOTE | 2019-06-07 08:11 | NUR ---
PATIENT STILL ASLEEP. QUITE.
[2019-06-07] MEDS: BUDESONIDE 0.5 MG/2 ML AMPUL.NEB IH SCH (08:30)
--- NOTE | 2019-06-07 08:30 | NUR ---
medication crushed but refused to take it. made comfortable.
[2019-06-07] MEDS: ASCORBATE SOD PO SCH (09:00)
[2019-06-07] MEDS: VITE AC PO SCH (09:00)
[2019-06-07] MEDS: ARGININE PO SCH (09:00)
[2019-06-07] MEDS: PANTOPRAZOLE SODIUM 40 MG TAB PO SCH (09:01)
[2019-06-07] MEDS: amLODIPine BESYLATE 10 MG TABLET PO SCH ×2 (09:01→12:02)
[2019-06-07] MEDS: MULTIVITAMINS TAB 1 TABLET PO SCH (09:02)
[2019-06-07] MEDS: ASPIRIN 81 MG TAB.CHEW PO SCH (09:02)
[2019-06-07] MEDS: ASCORBIC ACID 500 MG TABLET PO SCH (09:02)
[2019-06-07] MEDS: ATENOLOL 50 MG TABLET (TENORMIN) PO SCH (09:02)
--- NOTE | 2019-06-07 09:40 | NUR ---
bed changed at this time. patient walking with the physical therapist.
--- NOTE | 2019-06-07 10:55 | NUR ---
still on the bathroom trying to do bowel movement. while walking with dave physical therapist. patient had 2 bowel movement brown soft moderate amount.
[2019-06-07] MEDS ORDERED: ASCORBIC ACID 500 MG TABLET PO ONE (11:45)
[2019-06-07] MEDS ORDERED: PANTOPRAZOLE SODIUM 40 MG TAB PO ONE (11:45)
[2019-06-07] MEDS ORDERED: ATENOLOL 50 MG TABLET (TENORMIN) PO ONE (11:45)
[2019-06-07] MEDS ORDERED: MULTIVITAMINS TAB 1 TABLET PO ONE (11:45)
[2019-06-07] MEDS ORDERED: MILK OF MAGNESIA 30 ML UDC PO PRN (11:45)
[2019-06-07] MEDS ORDERED: DOCUSATE SODIUM 100 MG/10 ML UDC PO ONE (11:45)
[2019-06-07] MEDS ORDERED: ASPIRIN 81 MG TAB.CHEW PO ONE (11:45)
[2019-06-07] MEDS: ACETAMINOPHEN 325 MG TABLET PO PRN (12:03)
--- NOTE | 2019-06-07 12:05 | NUR ---
all am medication given at this time. with apple sauce and ensure vanilla flavor. he was able to take it. with bit of pureed foods.
--- NOTE | 2019-06-07 12:10 | NUR ---
Discharge Planning: DCP faxed pt referral to [facility] (f [phone] p [phone]) JORGEP to follow up. Addendum: 06/07/19 at 1534 by Sanjuana Vivar DP CHASITY follwed up with Martine at [facility] (f [phone] p [phone]) patient accepted back to [facility]. Addendum: 06/07/19 at 1558 by Sanjuana Vivar DP CHASITY spoke to Sanchez patient accepted back to [facility] (f [phone] p [phone]) [facility], JORGEP made nurse aware, and arranged transportation with [facility] ([phone]) Ref# [id number] [facility]. DCP took patient packet to nurse station.
[2019-06-07] MEDS ORDERED: LEVO750T45 PO ×2 (12:17→12:18)
[2019-06-07] MEDS ORDERED: METR500T PO (12:24)
--- NOTE | 2019-06-07 12:35 | NUR ---
viktoria orellana who is responsible for this patient came and informed Johanna MO regarding to informed regarding if patient will be discharge today. [phone]
--- NOTE | 2019-06-07 14:56 | NUR ---
patient both eyes closed. still with midline picc line 2 lumen. dry/intact dressing clean/dry. no pain noted.
--- NOTE | 2019-06-07 15:40 | NUR ---
gracie care done. made comfortable. has respiratory treatment given.
--- NOTE | 2019-06-07 15:46 | NUR ---
zozyn iv given at this time. via midline 2 lumen. assists on adls.
--- NOTE | 2019-06-07 17:16 | NUR ---
midline picc discontinue as per dr order no bleeding noted.
--- NOTE | 2019-06-07 18:04 | NUR ---
able to drink ensure the whole thing. refused to eat food for dinner. made comfortable. discharged instructions documents pts unable to signed due confusion. sister Rohit Treadwell made aware of the discharge tonite to [facility] via [facility]. awaiting for the the ambulance to come.
--- NOTE | 2019-06-07 18:13 | NUR ---
[facility] NAM[facility] CAME AND PATIENT TRANSPORTATION DRIVER THE PATIENT. GOING TO [facility]. NO IV ACCESS NOTED. [facility] I D BAND REMOVED. [facility] TECH REMOVED. DISCHARGE INSTRUCTION GIVEN TO AMBULANCE. PATIENT LEFT IN STABLE CONDITION.
[2019-06-07] MEDS ORDERED: DOCUSATE SODIUM 100 MG/10 ML UDC PO SCH (21:00)
== END 2019-06-07 18:15 | DRG 710 ==
LOC: SED 20:39 → STU 05-29 03:18
PROVIDERS: ADMIT Internal Medicine; ATTEND Internal Medicine
PROC: 0YU60JZ Supplement Left Inguinal Region with Synthetic Substitute, Open Approach (ICD-10-PCS; principal; 2019-06-01 17:30)
PROC: 05HY33Z Insertion of Infusion Device into Upper Vein, Percutaneous Approach (ICD-10-PCS; 2019-06-03)
PROC: B54MZZA Ultrasonography of Right Upper Extremity Veins, Guidance (ICD-10-PCS; 2019-06-03)
DX: A41.9 Sepsis, unspecified organism (principal); I21.4 Non-ST elevation (NSTEMI) myocardial infarction; R65.21 Severe sepsis with septic shock; I48.91 Unspecified atrial fibrillation; K40.30 Unilateral inguinal hernia, with obstruction, without gangrene, not specified as recurrent; J44.1 Chronic obstructive pulmonary disease with (acute) exacerbation; K86.1 Other chronic pancreatitis; N18.4 Chronic kidney disease, stage 4 (severe); G30.9 Alzheimer's disease, unspecified; F01.50 Vascular dementia, unspecified severity, without behavioral disturbance, psychotic disturbance, mood disturbance, and anxiety; M86.9 Osteomyelitis, unspecified; I12.9 Hypertensive chronic kidney disease with stage 1 through stage 4 chronic kidney disease, or unspecified chronic kidney disease; M81.0 Age-related osteoporosis without current pathological fracture; F02.80 Dementia in other diseases classified elsewhere, unspecified severity, without behavioral disturbance, psychotic disturbance, mood disturbance, and anxiety; E78.5 Hyperlipidemia, unspecified; I25.10 Atherosclerotic heart disease of native coronary artery without angina pectoris; I35.0 Nonrheumatic aortic (valve) stenosis; K56.41 Fecal impaction; K80.20 Calculus of gallbladder without cholecystitis without obstruction; N50.89 Other specified disorders of the male genital organs; Z99.3 Dependence on wheelchair; Z95.5 Presence of coronary angioplasty implant and graft; Z87.891 Personal history of nicotine dependence; Z87.01 Personal history of pneumonia (recurrent); Z86.718 Personal history of other venous thrombosis and embolism; Z79.899 Other long term (current) drug therapy; I69.311 Memory deficit following cerebral infarction
CPT/HCPCS: 36415; 70450-TC; 71045; 74018; 76700-TC; 80048; 80053; 80061; 81000-TC; 82962; 83605; 83880; 84443-TC; 84484; 85025; 85610-TC; 85730-TC; 86886; 86900; 86901; 87040-TC; 87081; 87086; 92610-GN; 93005; 93306; 94640; 94760; 97530-GP; 99285; C1751; C1781; G0378; J0690; J1100; J1956; J2270; J2405; J2543; J2704; J3010; J3490; J7030; J7060; J7120; J7626

== ENCOUNTER 2019-07-11 19:32 | Inpatient (IN) | payer MEDICAID, MEDICARE, SELFPAY ==
[~2019-07-11] VITALS: Ht 162.6 cm; Wt 57.2 kg
[~2019-07-11 19:32] MED LIST: ACET-2165 PO; ARGI1POW13 PO; ASCO500T20 PO; ATEN100T PO; BUDE0.5A IH; CLON0.3T PO; DABI150C PO; DONE5TAB33 PO; LEVO750T45 PO; LIP80 PO; METR500T PO; MULT-1100 PO; NOR10 PO; PRO40 PO; QUET300T2 PO; TRAM50TA2 PO
[2019-07-11 19:46] VITALS: BP_SYST 167
[2019-07-11] MEDS ORDERED: LORazepam 2 MG/ML VIAL IM ONE (20:30)
[2019-07-11] MEDS ORDERED: MEGE40TA PO (20:36)
[2019-07-11] MEDS ORDERED: ALBU2.5V7 INH (20:36)
[2019-07-11] MEDS ORDERED: MEGE625O3 PO (20:39)
[2019-07-11] MEDS ORDERED: LORazepam 2 MG/ML VIAL IVP ONE (20:45)
[2019-07-11] MEDS ORDERED: ACETAMINOPHEN 325 MG SUPP.RECT RC ONE (20:45)
[2019-07-11 22:14] LABS: CALCIUM 9.1 mg/dL (8.4-11.0); CREATININE 1.88 mg/dL (0.55-1.30)
[2019-07-11 22:22] LABS: ALBUMIN 3.2 g/dL (3.4-4.8); TOTAL BILIRUBIN 0.3 mg/dL (0.0-1.0)
[2019-07-11 22:25] LABS: BASOPHILS # (AUTO) 0.1 K/uL (0.0-0.2); BASOPHILS % (AUTO) 0.8 % (0.0-2.0); EOSINOPHILS # (AUTO) 0.1 K/uL (0.0-0.4); EOSINOPHILS % (AUTO) 1.1 % (0.0-4.0); HEMOGLOBIN 9.7 g/dL (14.0-18.0); LYMPHOCYTES # (AUTO) 2.6 K/uL (1.0-5.5); LYMPHOCYTES % (AUTO) 30.1 % (20.5-51.5); MEAN CORPUSCULAR HEMOGLOBIN 32 pg (27-31); MEAN CORPUSCULAR HGB CONC 34 % (32-36); MEAN CORPUSCULAR VOLUME 94 fL (79.0-98.0); MONOCYTES # (AUTO) 0.7 K/uL (0.0-1.0); NEUTROPHILS # (AUTO) 5.1 K/uL (1.8-7.7); PLATELET COUNT (AUTO) 299 K/uL (130-430); RED BLOOD CELL COUNT(AUTO) 3.09 MIL/uL (4.2-6.2); RED CELL DISTRIBUTION WIDTH 14.9 % (9.0-15.0); WHITE BLOOD COUNT (AUTO) 8.5 K/uL (4.8-10.8)
[2019-07-11 23:56] VITALS: BP_SYST 192
[2019-07-12] VITALS (8 sets, daily range): BP systolic 115–181
[2019-07-12] MEDS: LEVOFLOXACIN 500 MG/D5W 100 ML IV SCH ×2 (00:53→21:00)
[2019-07-12] MEDS ORDERED: LEVOFLOXACIN 500 MG/D5W 100 ML IV ONE (00:57)
[2019-07-12] MEDS ORDERED: cloNIDine HCL 0.1 MG TABLET PO ONE (03:45)
[2019-07-12] MEDS ORDERED: cloNIDine HCL 0.2 MG TABLET ONE (04:07)
[2019-07-12] MEDS ORDERED: cloNIDine HCL 0.1 MG TABLET PO PRN (04:15)
[2019-07-12] MEDS ORDERED: amLODIPine BESYLATE 10 MG TABLET PO ONE (04:45)
[2019-07-12] MEDS ORDERED: traMADol HCL HCL 50 MG TABLET (ULTRAM) PO PRN (07:00)
[2019-07-12] MEDS ORDERED: ALBUTEROL SULFATE 0.083% 2.5 MG/3 ML VIAL.NEB INH PRN (07:00)
[2019-07-12] MEDS ORDERED: ACETAMINOPHEN 325 MG TABLET PO PRN (07:00)
[2019-07-12] MEDS: BUDESONIDE 0.5 MG/2 ML AMPUL.NEB IH SCH (08:15)
[2019-07-12] MEDS: LEVOFLOXACIN 750 MG TABLET PO SCH (08:16)
[2019-07-12] MEDS: metroNIDAZOLE 500 MG TABLET PO SCH ×2 (08:16→20:54)
[2019-07-12] MEDS: amLODIPine BESYLATE 10 MG TABLET PO SCH (08:17)
[2019-07-12] MEDS: DABIGATRAN ETEXILATE MESYLATE 75 MG CAPSULE PO SCH ×2 (08:17→21:10)
[2019-07-12] MEDS: ATENOLOL 50 MG TABLET (TENORMIN) PO SCH (08:18)
[2019-07-12] MEDS: PANTOPRAZOLE SODIUM 40 MG TAB PO SCH (08:18)
[2019-07-12] MEDS: ASCORBIC ACID 500 MG TABLET PO SCH (08:19)
[2019-07-12] MEDS ORDERED: ATENOLOL 50 MG TABLET (TENORMIN) PO SCH (09:00)
[2019-07-12] MEDS ORDERED: amLODIPine BESYLATE 10 MG TABLET PO SCH (09:00)
[2019-07-12 14:13] LABS: INR 1.3 (0.80-1.20); PROTHROMBIN TIME 13.2 SECS (9.5-12.5)
[2019-07-12] MEDS: ATORVASTATIN 20 MG TABLET PO SCH (20:53)
[2019-07-12] MEDS: QUEtiapine FUMARATE 100 MG TABLET PO SCH (20:53)
[2019-07-12] MEDS: DONEPEZIL HCL 5 MG TABLET (ARICEPT) PO SCH (20:54)
[2019-07-13 00:30] VITALS: BP_SYST 148
[2019-07-13] MEDS: BUDESONIDE 0.5 MG/2 ML AMPUL.NEB IH SCH ×4 (01:03→20:46)
[2019-07-13 08:26] LABS: BASOPHILS # (AUTO) 0.1 K/uL (0.0-0.2); BASOPHILS % (AUTO) 0.8 % (0.0-2.0); EOSINOPHILS # (AUTO) 0.2 K/uL (0.0-0.4); EOSINOPHILS % (AUTO) 2.7 % (0.0-4.0); HEMATOCRIT 31.1 % (36-54); LYMPHOCYTES % (AUTO) 30.3 % (20.5-51.5); MEAN CORPUSCULAR HEMOGLOBIN 31 pg (27-31); MEAN CORPUSCULAR HGB CONC 32 % (32-36); MEAN CORPUSCULAR VOLUME 96 fL (79.0-98.0); MONOCYTES # (AUTO) 0.4 K/uL (0.0-1.0); NEUTROPHILS # (AUTO) 3.9 K/uL (1.8-7.7); NEUTROPHILS % (AUTO) 60.2 % (40.0-70.0); PLATELET COUNT (AUTO) 245 K/uL (130-430); RED BLOOD CELL COUNT(AUTO) 3.24 MIL/uL (4.2-6.2); RED CELL DISTRIBUTION WIDTH 14.9 % (9.0-15.0); WHITE BLOOD COUNT (AUTO) 6.5 K/uL (4.8-10.8)
[2019-07-13 08:46] LABS: CREATININE 2.02 mg/dL (0.55-1.30); POTASSIUM 4.5 mmol/L (3.5-5.1)
[2019-07-13 08:54] LABS: ALBUMIN 3.1 g/dL (3.4-4.8); TOTAL BILIRUBIN 0.3 mg/dL (0.0-1.0)
[2019-07-13] MEDS: PANTOPRAZOLE SODIUM 40 MG TAB PO SCH (09:00)
[2019-07-13] MEDS: LEVOFLOXACIN 750 MG TABLET PO SCH (09:00)
[2019-07-13] MEDS: amLODIPine BESYLATE 10 MG TABLET PO SCH (09:00)
[2019-07-13] MEDS: DABIGATRAN ETEXILATE MESYLATE 75 MG CAPSULE PO SCH ×2 (09:00→20:36)
[2019-07-13] MEDS: ATENOLOL 50 MG TABLET (TENORMIN) PO SCH (09:00)
[2019-07-13] MEDS: metroNIDAZOLE 500 MG TABLET PO SCH ×2 (09:00→20:33)
[2019-07-13] MEDS: ASCORBIC ACID 500 MG TABLET PO SCH (09:00)
[2019-07-13 09:12] VITALS: BP_SYST 122
[2019-07-13 13:23] VITALS: BP_SYST 122
[2019-07-13 15:41] VITALS: BP_SYST 137
[2019-07-13 20:30] VITALS: BP_SYST 126
[2019-07-13] MEDS: ATORVASTATIN 20 MG TABLET PO SCH (20:32)
[2019-07-13] MEDS: QUEtiapine FUMARATE 100 MG TABLET PO SCH (20:32)
[2019-07-13] MEDS: DONEPEZIL HCL 5 MG TABLET (ARICEPT) PO SCH (20:32)
[2019-07-13] MEDS: LEVOFLOXACIN 500 MG/D5W 100 ML IV SCH (21:22)
[2019-07-14 00:15] VITALS: BP_SYST 148
[2019-07-14 08:00] VITALS: BP_SYST 146
[2019-07-14] MEDS: LEVOFLOXACIN 750 MG TABLET PO SCH (09:10)
[2019-07-14] MEDS: QUEtiapine FUMARATE 25 MG TABLET PO SCH ×2 (09:11→17:09)
[2019-07-14] MEDS: PANTOPRAZOLE SODIUM 40 MG TAB PO SCH (09:11)
[2019-07-14] MEDS: DABIGATRAN ETEXILATE MESYLATE 75 MG CAPSULE PO SCH ×2 (09:11→21:52)
[2019-07-14] MEDS: ASCORBIC ACID 500 MG TABLET PO SCH (09:11)
[2019-07-14] MEDS: metroNIDAZOLE 500 MG TABLET PO SCH ×2 (09:11→21:52)
[2019-07-14] MEDS: ATENOLOL 50 MG TABLET (TENORMIN) PO SCH (09:16)
[2019-07-14] MEDS: amLODIPine BESYLATE 10 MG TABLET PO SCH (09:17)
[2019-07-14] MEDS: BUDESONIDE 0.5 MG/2 ML AMPUL.NEB IH SCH (09:58)
[2019-07-14 12:00] VITALS: BP_SYST 150
[2019-07-14 16:00] VITALS: BP_SYST 153
[2019-07-14 20:00] VITALS: BP_SYST 143
[2019-07-14] MEDS: LEVOFLOXACIN 500 MG/D5W 100 ML IV SCH (21:52)
[2019-07-14] MEDS: ATORVASTATIN 20 MG TABLET PO SCH (21:52)
[2019-07-14] MEDS: QUEtiapine FUMARATE 100 MG TABLET PO SCH (21:52)
[2019-07-15] VITALS: BP_SYST 148
[2019-07-15 07:10] LABS: ALBUMIN 3.1 g/dL (3.4-4.8); CALCIUM 9.6 mg/dL (8.4-11.0); CREATININE 2.07 mg/dL (0.55-1.30); POTASSIUM 4.3 mmol/L (3.5-5.1); TOTAL BILIRUBIN 0.3 mg/dL (0.0-1.0)
[2019-07-15 07:13] LABS: BASOPHILS % (AUTO) 0.5 % (0.0-2.0); EOSINOPHILS # (AUTO) 0.1 K/uL (0.0-0.4); EOSINOPHILS % (AUTO) 2.1 % (0.0-4.0); HEMATOCRIT 33.5 % (36-54); LYMPHOCYTES % (AUTO) 30.1 % (20.5-51.5); MEAN CORPUSCULAR HEMOGLOBIN 32 pg (27-31); MEAN CORPUSCULAR HGB CONC 33 % (32-36); MEAN CORPUSCULAR VOLUME 95 fL (79.0-98.0); MONOCYTES # (AUTO) 0.4 K/uL (0.0-1.0); MONOCYTES % (AUTO) 6.5 % (1.7-9.3); NEUTROPHILS # (AUTO) 4.1 K/uL (1.8-7.7); NEUTROPHILS % (AUTO) 60.8 % (40.0-70.0); PLATELET COUNT (AUTO) 291 K/uL (130-430); RED CELL DISTRIBUTION WIDTH 14.9 % (9.0-15.0); WHITE BLOOD COUNT (AUTO) 6.8 K/uL (4.8-10.8)
[2019-07-15 08:00] VITALS: BP_SYST 159
[2019-07-15] MEDS ORDERED: LEVOFLOXACIN 500 MG TABLET PO SCH (08:08)
[2019-07-15] MEDS: PANTOPRAZOLE SODIUM 40 MG TAB PO SCH (09:00)
[2019-07-15] MEDS: DABIGATRAN ETEXILATE MESYLATE 75 MG CAPSULE PO SCH (09:00)
[2019-07-15] MEDS: QUEtiapine FUMARATE 25 MG TABLET PO SCH (09:00)
[2019-07-15] MEDS: metroNIDAZOLE 500 MG TABLET PO SCH (09:00)
[2019-07-15] MEDS: ASCORBIC ACID 500 MG TABLET PO SCH (09:00)
[2019-07-15] MEDS: ATENOLOL 50 MG TABLET (TENORMIN) PO SCH (09:00)
[2019-07-15] MEDS: amLODIPine BESYLATE 10 MG TABLET PO SCH (09:00)
[2019-07-15] MEDS: BUDESONIDE 0.5 MG/2 ML AMPUL.NEB IH SCH ×2 (10:14→19:00)
[2019-07-15 12:00] VITALS: BP_SYST 146
[2019-07-15 16:24] VITALS: BP_SYST 136
[2019-07-15 20:00] VITALS: BP_SYST 149
== END 2019-07-15 20:45 | DRG 145 ==
LOC: EEVIPCON 19:32 → SED 19:32 → STU 22:43 → SMU 07-15 14:34 → STU 07-15 14:46
PROVIDERS: ADMIT Internal Medicine Infectious Disease; ATTEND Internal Medicine Infectious Disease
DX: J20.9 Acute bronchitis, unspecified (principal); I21.4 Non-ST elevation (NSTEMI) myocardial infarction; J96.01 Acute respiratory failure with hypoxia; N17.9 Acute kidney failure, unspecified; I13.0 Hypertensive heart and chronic kidney disease with heart failure and stage 1 through stage 4 chronic kidney disease, or unspecified chronic kidney disease; I50.9 Heart failure, unspecified; F01.51 Vascular dementia, unspecified severity, with behavioral disturbance; Z78.1 Physical restraint status; E78.5 Hyperlipidemia, unspecified; G40.909 Epilepsy, unspecified, not intractable, without status epilepticus; I25.10 Atherosclerotic heart disease of native coronary artery without angina pectoris; F41.9 Anxiety disorder, unspecified; N18.3 Chronic kidney disease, stage 3 (moderate); Z20.828 Contact with and (suspected) exposure to other viral communicable diseases; Z79.2 Long term (current) use of antibiotics; Z79.899 Other long term (current) drug therapy; Z86.73 Personal history of transient ischemic attack (TIA), and cerebral infarction without residual deficits; Z74.01 Bed confinement status; Z87.891 Personal history of nicotine dependence; Z95.5 Presence of coronary angioplasty implant and graft; R47.01 Aphasia
CPT/HCPCS: 36415; 36600; 71045; 80053; 82550-TC; 82803-TC; 83880; 84484; 85025; 85379; 85610-TC; 86403; 86710; 87081; 93005; 94640; 94760; 96374; 99291; G0378; J1956; J2060; J7613; J7626; U0002

== ENCOUNTER 2019-08-17 20:11 | Inpatient (IN) | payer MEDICAID, MEDICARE, SELFPAY ==
[~2019-08-17] VITALS: Ht 160 cm; Wt 62.8 kg
[~2019-08-17 20:11] MED LIST changes: +ALBU2.5V7 INH; +MEGE625O3 PO; -METR500T PO
[2019-08-17 20:20] VITALS: BP_SYST 146
[2019-08-17] MEDS ORDERED: NACL 0.9% 1,000 ML IV ONE (21:04)
[2019-08-17 21:30] LABS: BASOPHILS # (AUTO) 0.1 K/uL (0.0-0.2); BASOPHILS % (AUTO) 0.7 % (0.0-2.0); EOSINOPHILS # (AUTO) 0.2 K/uL (0.0-0.4); EOSINOPHILS % (AUTO) 2.7 % (0.0-4.0); HEMATOCRIT 32.5 % (36-54); HEMOGLOBIN 10.9 g/dL (14.0-18.0); LYMPHOCYTES # (AUTO) 2.4 K/uL (1.0-5.5); LYMPHOCYTES % (AUTO) 35.3 % (20.5-51.5); MEAN CORPUSCULAR HEMOGLOBIN 31 pg (27-31); MEAN CORPUSCULAR HGB CONC 34 % (32-36); MEAN CORPUSCULAR VOLUME 93 fL (79.0-98.0); MONOCYTES # (AUTO) 0.5 K/uL (0.0-1.0); MONOCYTES % (AUTO) 6.9 % (1.7-9.3); NEUTROPHILS # (AUTO) 3.6 K/uL (1.8-7.7); NEUTROPHILS % (AUTO) 54.4 % (40.0-70.0); PLATELET COUNT (AUTO) 240 K/uL (130-430); RED BLOOD CELL COUNT(AUTO) 3.48 MIL/uL (4.2-6.2); RED CELL DISTRIBUTION WIDTH 15.3 % (9.0-15.0); WHITE BLOOD COUNT (AUTO) 6.7 K/uL (4.8-10.8)
[2019-08-17 21:51] LABS: INR 1.4 (0.80-1.20); PROTHROMBIN TIME 13.6 SECS (9.5-12.5)
[2019-08-17 22:06] LABS: BILIRUBIN,URINE NEGATIVE (NEGATIVE); COLOR,URINE YELLOW (YELLOW); GLUCOSE,URINE NEGATIVE (NEGATIVE); KETONES,URINE NEGATIVE (NEGATIVE); LEUKOCYTE ESTERASE ,URINE NEGATIVE (NEGATIVE); NITRITE, URINE NEGATIVE (NEGATIVE); PH,URINE 5.5 (5.0-8.0); PROTEIN URINE 2+ (NEGATIVE); UROBILINOGEN,URINE 0.2 (0.2-1.0)
[2019-08-17 22:08] LABS: CALCIUM 9.6 mg/dL (8.4-11.0); CREATININE 2.12 mg/dL (0.55-1.30); POTASSIUM 3.9 mmol/L (3.5-5.1)
[2019-08-17 22:14] LABS: ALBUMIN 2.9 g/dL (3.4-4.8); TOTAL BILIRUBIN 0.3 mg/dL (0.0-1.0)
[2019-08-17 22:27] LABS: BLOOD, URINE TRACE (NEGATIVE); CLARITY/URINE HAZY (CLEAR)
[2019-08-17 22:35] LABS: BACTERIA,URINE FEW /HPF (None Seen); RBC,URINE 0-3 /HPF (0-3); URINE AMORPHOUS URATE 1+ /HPF (None Seen); WBC,URINE NONE SEEN /HPF (0-3)
[2019-08-17] MEDS ORDERED: LEVE750T4 PO (23:13)
[2019-08-17 23:57] VITALS: BP_SYST 158
[2019-08-18 06:42] VITALS: BP_SYST 135
[2019-08-18] MEDS ORDERED: ACETAMINOPHEN 325 MG TABLET PO PRN (09:30)
[2019-08-18] MEDS ORDERED: ALBUTEROL SULFATE 0.083% 2.5 MG/3 ML VIAL.NEB INH PRN (09:30)
[2019-08-18 09:38] VITALS: BP_SYST 135
[2019-08-18 09:45] VITALS: BP_SYST 160
[2019-08-18] MEDS ORDERED: BUDESONIDE 0.5 MG/2 ML AMPUL.NEB IH ONE (09:45)
[2019-08-18 13:01] VITALS: BP_SYST 156
[2019-08-18 15:50] VITALS: BP_SYST 155
[2019-08-18] MEDS: BUDESONIDE 0.5 MG/2 ML AMPUL.NEB IH SCH (19:00)
[2019-08-18 20:00] VITALS: BP_SYST 152
[2019-08-18] MEDS: levETIRAcetam 500 MG TABLET PO SCH (21:20)
[2019-08-18] MEDS: DABIGATRAN ETEXILATE MESYLATE 75 MG CAPSULE PO SCH (21:20)
[2019-08-18] MEDS: DONEPEZIL HCL 5 MG TABLET (ARICEPT) PO SCH (21:20)
[2019-08-18] MEDS: ATORVASTATIN 20 MG TABLET PO SCH (21:20)
[2019-08-18] MEDS: QUEtiapine FUMARATE 100 MG TABLET PO SCH (21:21)
[2019-08-19] VITALS: BP_SYST 153
[2019-08-19] MEDS: BUDESONIDE 0.5 MG/2 ML AMPUL.NEB IH SCH ×2 (07:00→19:00)
[2019-08-19 08:00] VITALS: BP_SYST 160
[2019-08-19] MEDS: PANTOPRAZOLE SODIUM 40 MG TAB PO SCH (09:00)
[2019-08-19] MEDS: ATENOLOL 50 MG TABLET (TENORMIN) PO SCH (09:00)
[2019-08-19] MEDS: DABIGATRAN ETEXILATE MESYLATE 75 MG CAPSULE PO SCH ×2 (09:00→21:00)
[2019-08-19] MEDS: amLODIPine BESYLATE 10 MG TABLET PO SCH (09:00)
[2019-08-19] MEDS: levETIRAcetam 500 MG TABLET PO SCH ×2 (09:00→21:00)
[2019-08-19 09:12] LABS: BASOPHILS % (AUTO) 0.6 % (0.0-2.0); EOSINOPHILS # (AUTO) 0.1 K/uL (0.0-0.4); EOSINOPHILS % (AUTO) 1.6 % (0.0-4.0); HEMATOCRIT 37.3 % (36-54); HEMOGLOBIN 12.2 g/dL (14.0-18.0); LYMPHOCYTES # (AUTO) 2.6 K/uL (1.0-5.5); LYMPHOCYTES % (AUTO) 37.7 % (20.5-51.5); MEAN CORPUSCULAR HEMOGLOBIN 32 pg (27-31); MEAN CORPUSCULAR HGB CONC 33 % (32-36); MEAN CORPUSCULAR VOLUME 96 fL (79.0-98.0); MONOCYTES # (AUTO) 0.2 K/uL (0.0-1.0); MONOCYTES % (AUTO) 3.5 % (1.7-9.3); NEUTROPHILS % (AUTO) 56.6 % (40.0-70.0); RED BLOOD CELL COUNT(AUTO) 3.88 MIL/uL (4.2-6.2); RED CELL DISTRIBUTION WIDTH 15.2 % (9.0-15.0)
[2019-08-19 09:40] LABS: ALBUMIN 3.4 g/dL (3.4-4.8); CALCIUM 10.1 mg/dL (8.4-11.0); CREATININE 1.84 mg/dL (0.55-1.30); POTASSIUM 4.1 mmol/L (3.5-5.1); THYROID STIMULATING HORMONE 2.78 uIu/mL (0.36-3.74); TOTAL BILIRUBIN 0.6 mg/dL (0.0-1.0)
[2019-08-19] MEDS ORDERED: hydrALAZINE HCL 20 MG/ML VIAL IVP PRN (10:15)
[2019-08-19 12:00] VITALS: BP_SYST 145
[2019-08-19 12:10] LABS: PLATELET COUNT (AUTO) 178 K/uL (130-430)
[2019-08-19 16:00] VITALS: BP_SYST 150
[2019-08-19 19:45] VITALS: BP_SYST 137
[2019-08-19] MEDS: QUEtiapine FUMARATE 100 MG TABLET PO SCH (21:00)
[2019-08-19] MEDS: ATORVASTATIN 20 MG TABLET PO SCH (21:00)
[2019-08-19] MEDS: DONEPEZIL HCL 5 MG TABLET (ARICEPT) PO SCH (21:00)
[2019-08-20] VITALS: BP_SYST 130
[2019-08-20 08:00] VITALS: BP_SYST 141
[2019-08-20] MEDS: levETIRAcetam 500 MG TABLET PO SCH ×2 (08:00→20:13)
[2019-08-20] MEDS: PANTOPRAZOLE SODIUM 40 MG TAB PO SCH (08:00)
[2019-08-20] MEDS: DABIGATRAN ETEXILATE MESYLATE 75 MG CAPSULE PO SCH ×2 (08:00→20:14)
[2019-08-20] MEDS: amLODIPine BESYLATE 10 MG TABLET PO SCH (08:00)
[2019-08-20] MEDS: ATENOLOL 50 MG TABLET (TENORMIN) PO SCH (08:00)
[2019-08-20 08:37] LABS: CALCIUM 9.7 mg/dL (8.4-11.0); CREATININE 2.28 mg/dL (0.55-1.30); POTASSIUM 4.1 mmol/L (3.5-5.1)
[2019-08-20 12:00] VITALS: BP_SYST 135
[2019-08-20] MEDS: 0.45% NACL 1,000 ML IV SCH ×2 (13:15→23:15)
[2019-08-20 16:00] VITALS: BP_SYST 136
[2019-08-20] MEDS: BUDESONIDE 0.5 MG/2 ML AMPUL.NEB IH SCH (18:50)
[2019-08-20 20:00] VITALS: BP_SYST 147
[2019-08-20] MEDS: ATORVASTATIN 20 MG TABLET PO SCH (20:13)
[2019-08-20] MEDS: DONEPEZIL HCL 5 MG TABLET (ARICEPT) PO SCH (20:13)
[2019-08-20] MEDS: QUEtiapine FUMARATE 100 MG TABLET PO SCH (20:13)
[2019-08-21] VITALS (8 sets, daily range): BP systolic 148–167
[2019-08-21] MEDS: amLODIPine BESYLATE 10 MG TABLET PO SCH (08:46)
[2019-08-21] MEDS: ATENOLOL 50 MG TABLET (TENORMIN) PO SCH (08:47)
[2019-08-21] MEDS: levETIRAcetam 500 MG TABLET PO SCH ×2 (08:47→21:42)
[2019-08-21] MEDS: DABIGATRAN ETEXILATE MESYLATE 75 MG CAPSULE PO SCH ×2 (08:47→21:40)
[2019-08-21] MEDS: PANTOPRAZOLE SODIUM 40 MG TAB PO SCH (08:47)
[2019-08-21] MEDS: 0.45% NACL 1,000 ML IV SCH (08:50)
[2019-08-21] MEDS: BUDESONIDE 0.5 MG/2 ML AMPUL.NEB IH SCH ×2 (09:01→20:01)
[2019-08-21 16:22] LABS: BASOPHILS # (AUTO) 0.1 K/uL (0.0-0.2); BASOPHILS % (AUTO) 0.6 % (0.0-2.0); EOSINOPHILS # (AUTO) 0.3 K/uL (0.0-0.4); EOSINOPHILS % (AUTO) 2.8 % (0.0-4.0); HEMOGLOBIN 11.4 g/dL (14.0-18.0); LYMPHOCYTES # (AUTO) 1.5 K/uL (1.0-5.5); MEAN CORPUSCULAR HEMOGLOBIN 32 pg (27-31); MEAN CORPUSCULAR HGB CONC 33 % (32-36); MEAN CORPUSCULAR VOLUME 95 fL (79.0-98.0); MONOCYTES # (AUTO) 0.5 K/uL (0.0-1.0); MONOCYTES % (AUTO) 5.5 % (1.7-9.3); NEUTROPHILS # (AUTO) 7.2 K/uL (1.8-7.7); NEUTROPHILS % (AUTO) 75.1 % (40.0-70.0); PLATELET COUNT (AUTO) 251 K/uL (130-430); RED BLOOD CELL COUNT(AUTO) 3.59 MIL/uL (4.2-6.2); RED CELL DISTRIBUTION WIDTH 15.2 % (9.0-15.0); WHITE BLOOD COUNT (AUTO) 9.6 K/uL (4.8-10.8)
[2019-08-21 16:33] LABS: CALCIUM 9.6 mg/dL (8.4-11.0); CREATININE 2.2 mg/dL (0.55-1.30); POTASSIUM 4.1 mmol/L (3.5-5.1)
[2019-08-21] MEDS: QUEtiapine FUMARATE 100 MG TABLET PO SCH (21:39)
[2019-08-21] MEDS: ATORVASTATIN 20 MG TABLET PO SCH (21:41)
[2019-08-21] MEDS: DONEPEZIL HCL 5 MG TABLET (ARICEPT) PO SCH (21:41)
[2019-08-28] MEDS ORDERED: LEVE100S2 PO (14:43)
== END 2019-08-21 23:25 | DRG 469 ==
LOC: SED 20:11 → STU 22:59 → EEVIPCON 22:59 → STU 23:36
PROVIDERS: ADMIT Internal Medicine Infectious Disease; ATTEND Internal Medicine Infectious Disease
DX: N17.0 Acute kidney failure with tubular necrosis (principal); G93.41 Metabolic encephalopathy; I24.8 Other forms of acute ischemic heart disease; I69.354 Hemiplegia and hemiparesis following cerebral infarction affecting left non-dominant side; R47.01 Aphasia; E44.1 Mild protein-calorie malnutrition; N18.4 Chronic kidney disease, stage 4 (severe); F03.90 Unspecified dementia, unspecified severity, without behavioral disturbance, psychotic disturbance, mood disturbance, and anxiety; R53.1 Weakness; J44.9 Chronic obstructive pulmonary disease, unspecified; G40.909 Epilepsy, unspecified, not intractable, without status epilepticus; E78.5 Hyperlipidemia, unspecified; D64.9 Anemia, unspecified; R79.89 Other specified abnormal findings of blood chemistry; I25.10 Atherosclerotic heart disease of native coronary artery without angina pectoris; I12.9 Hypertensive chronic kidney disease with stage 1 through stage 4 chronic kidney disease, or unspecified chronic kidney disease; Z87.01 Personal history of pneumonia (recurrent); Z86.718 Personal history of other venous thrombosis and embolism; Z95.5 Presence of coronary angioplasty implant and graft; Z87.891 Personal history of nicotine dependence; Z99.3 Dependence on wheelchair; Z79.899 Other long term (current) drug therapy; Z03.818 Encounter for observation for suspected exposure to other biological agents ruled out
CPT/HCPCS: 36415; 71045; 76770; 80048; 80053; 80061; 81000-TC; 82962; 83036; 83605; 83880; 84443-TC; 84484; 85025; 85610-TC; 85730-TC; 87040-TC; 87081; 93005; 94640; 94760; 96360; 96361; 99285; G0378; J0360; J7030; J7040; J7626; U0002; U0003-CS

== ENCOUNTER 2020-02-22 09:43 | Emergency (ER) | payer MEDICARE, MEDICAID ==
[~2020-02-22] VITALS: Ht 177.8 cm; Wt 68.0 kg
[2020-02-22 09:43] VITALS: BP_SYST 121
[~2020-02-22 09:43] MED LIST changes: -ACET-2165 PO; +ACET325T PO; -DABI150C PO; +LEVE100S2 PO; -LEVO750T45 PO
--- NOTE | 2020-02-22 09:43 | NUR ---
BROUGHT IN BY [facility] FROM [facility], PLACED IN BED #5 AND TRIAGED. REPORT GIVEN TO DEBBI
--- NOTE | 2020-02-22 09:43 | NUR ---
69 y/o male [facility] ambulance to ER for low h/h. Patient h/o dementia, gtube, and right upper arm contraction. Introduced self to patient (patient is non-verbal), mild expiratory wheezing noted, also noted to have bilateral knees bent, ulceration noted to left lateral heel. Positioned for comfort and safety w/ bed to low position sr up. Continue to monitor.
[2020-02-22 10:57] LABS: BASOPHILS # (AUTO) 0.1 K/uL (0.0-0.2); BASOPHILS % (AUTO) 0.6 % (0.0-2.0); EOSINOPHILS # (AUTO) 0.4 K/uL (0.0-0.4); EOSINOPHILS % (AUTO) 4.7 % (0.0-4.0); HEMATOCRIT 29.5 % (36-54); HEMOGLOBIN 9.5 g/dL (14.0-18.0); LYMPHOCYTES # (AUTO) 1.8 K/uL (1.0-5.5); LYMPHOCYTES % (AUTO) 20.3 % (20.5-51.5); MEAN CORPUSCULAR HEMOGLOBIN 31 pg (27-31); MEAN CORPUSCULAR HGB CONC 32 % (32-36); MEAN CORPUSCULAR VOLUME 96 fL (79.0-98.0); MONOCYTES # (AUTO) 0.6 K/uL (0.0-1.0); MONOCYTES % (AUTO) 6.7 % (1.7-9.3); NEUTROPHILS # (AUTO) 5.9 K/uL (1.8-7.7); NEUTROPHILS % (AUTO) 67.7 % (40.0-70.0); PLATELET COUNT (AUTO) 199 K/uL (130-430); RED BLOOD CELL COUNT(AUTO) 3.08 MIL/uL (4.2-6.2); RED CELL DISTRIBUTION WIDTH 14.8 % (9.0-15.0); WHITE BLOOD COUNT (AUTO) 8.6 K/uL (4.8-10.8)
[2020-02-22] MEDS ORDERED: ACET325T53 GT ×2 (11:13→11:28)
[2020-02-22 11:19] LABS: CALCIUM 9.8 mg/dL (8.4-11.0); CREATININE 2.16 mg/dL (0.55-1.30)
[2020-02-22 11:25] LABS: ALBUMIN 3.3 g/dL (3.4-4.8); TOTAL BILIRUBIN 0.2 mg/dL (0.0-1.0)
[2020-02-22] MEDS ORDERED: NOR10 GT (11:28)
[2020-02-22] MEDS ORDERED: ARGININE GT (11:28)
[2020-02-22] MEDS ORDERED: ACET325T53 PO (11:28)
[2020-02-22] MEDS ORDERED: ATEN-168 GT (11:28)
[2020-02-22] MEDS ORDERED: LIP80 GT (11:28)
--- NOTE | 2020-02-22 12:23 | NUR ---
Patient resting comfortably at this time in no acute distress, wheezing subsided. Maintained patient position of comfort and safety w/ bed to low position sr up, continue to monitor level of comfort.
[2020-02-22 13:23] VITALS: BP_SYST 150
--- NOTE | 2020-02-22 13:23 | NUR ---
Report called and given to Tesha, nurse for patient at [facility].
--- NOTE | 2020-02-22 13:23 | NUR ---
Patient given written and verbal discharge instructions and verbalizes understanding. ER MD discussed with patient the results and treatment provided. Patient in stable condition. ID arm band removed. IV catheter removed intact and dressing applied, no active bleeding. Rx of [] given. Patient educated on pain management and to follow up with PMD. Pain Scale []. Opportunity for questions provided and answered.
== END 2020-02-22 13:23 | disposition home or self-care (01) ==
LOC: SED 09:43
DX: D64.9 Anemia, unspecified (principal); I12.9 Hypertensive chronic kidney disease with stage 1 through stage 4 chronic kidney disease, or unspecified chronic kidney disease; E11.22 Type 2 diabetes mellitus with diabetic chronic kidney disease; N18.9 Chronic kidney disease, unspecified
CPT/HCPCS: 36415; 71045; 80053; 83880; 84484; 85025; 93005; 99285